=== PATIENT | female | born 1980 | race Caucasian/White ===

== ENCOUNTER 2016-09-19 23:45 | Inpatient (IN) | payer MEDICAID ==
[~2016-09-19] VITALS: Ht 146.1 cm; Wt 107.5 kg
[~2016-09-19 23:45] MED LIST: NITR-58; PRENATALS
[2016-09-20 00:26] VITALS: BP 160/85; PULSE 69; RESP 18
[2016-09-20 00:46] LABS: ADD UMIC YES; URINE BILIRUBIN (Dip) NEGATIVE (NEGATIVE); URINE BLOOD (Dip) 2+ (NEGATIVE); URINE COLOR LT. YELLOW (YELLOW); URINE GLUCOSE (Dip) NEGATIVE (NEGATIVE); URINE KETONES (Dip) NEGATIVE (NEGATIVE); URINE LEUKOCYTE ESTERASE (Dip) NEGATIVE (NEGATIVE); URINE NITRITE (Dip) NEGATIVE (NEGATIVE); URINE UROBILINOGEN (Dip) 0.2 E.U./dL (0.1-1.0)
[2016-09-20 00:49] LABS: URINE TOTAL PROTEIN (Dip) 4+ (NEGATIVE)
[2016-09-20 01:03] LABS: BASOPHILS % 0.2 % (0.0-2.0); EOSINOPHILS # 0.1 10^3/ul (0.0-0.5); EOSINOPHILS % 0.6 % (0.0-7.0); HEMATOCRIT 42.2 % (37.0-47.0); HEMOGLOBIN 14.3 g/dl (12.0-16.0); LYMPHOCYTES # 2.5 10^3/ul (0.8-2.9); LYMPHOCYTES % 13.7 % (15.0-51.0); MEAN CORPUSCULAR HEMOGLOBIN 30.7 pg (29.0-33.0); MEAN CORPUSCULAR HGB CONC 33.8 g/dl (32.0-37.0); MEAN CORPUSCULAR VOLUME 90.7 fl (82.0-101.0); MEAN PLATELET VOLUME 8.9 fl (7.4-10.4); MONOCYTE # 0.9 10^3/ul (0.3-0.9); MONOCYTES % 5.1 % (0.0-11.0); NEUTROPHIL # 14.8 10^3/ul (1.6-7.5); NEUTROPHILS % 80.4 % (39.0-77.0); PLATELET COUNT 169 10^3/UL (140-440); RED BLOOD COUNT 4.65 10^6/ul (4.20-5.40); RED CELL DISTRIBUTION WIDTH 14.6 % (11.5-14.5); UNCORRECTED WBC 18.4 10^3/ul (4.8-10.8); WHITE BLOOD COUNT 18.4 10^3/ul (4.8-10.8)
[2016-09-20 01:04] LABS: CONDITION 1; LH ANALYZER COMMENTS 1
[2016-09-20 01:10] LABS: SQUAMOUS EPITHELIAL CELL,UR MANY
[2016-09-20 01:11] LABS: BACTERIA,URINE MODERATE
[2016-09-20 01:14] LABS: ALBUMIN 3.1 g/dl (3.3-4.9)
[2016-09-20 01:15] LABS: POTASSIUM 3.9 mmol/L (3.5-5.1)
[2016-09-20 01:16] LABS: INR 0.92; PROTIME 12.4 Sec (12.2-14.2)
[2016-09-20 01:17] LABS: ALBUMIN/GLOBULIN RATIO 0.91; BILIRUBIN,INDIRECT 0.6 mg/dl (0-1.1); BILIRUBIN,TOTAL 0.6 mg/dl (0.2-1.3); CREATININE 0.63 mg/dl (0.44-1.00); PARTIAL THROMBOPLASTIN TIME 28.6 Sec (25.0-35.0); TOTAL PROTEIN 6.5 g/dl (6.1-8.1)
[2016-09-20 01:18] LABS: CALCIUM 8.7 mg/dl (8.4-10.2); URIC ACID 6.2 mg/dl (3.1-7.9)
--- NOTE | 2016-09-20 01:59 | TRIAGE ---
OB Triage Datetime Report Generated by CPN: 09/20/2016 01:59 Datetime: 09/20/2016 00:32 Time of Arrival: 09/19/2016 23:36 EGA: 31.4 Arrived By: Wheelchair Arrived From: Home Chief Complaint: w/ hx c/s x1 w/ c/o epigastric pain, RESENDIZ, ucs. Denies hx problems this pregna ncy Movement: Absent Contractions: Regular Time Contractions Began: 09/19/2016 19:00 Rupture of Membranes: Denies Vaginal Bleeding: None Vaginal Discharge: Denies Abdominal Trauma: Not Applicable Patient Complaints: Contractions; Back Pain; Headache; Epigastric Pain; Dizziness Time Provider Notified: 09/20/2016 00:23 Provider Notified: Dr De Anda Initial Plan: EFM, PIH LABS,EFW,BPP,CVL,FFN,ROM Datetime: 09/19/2016 23:58 Maternal Assessment Level of Consciousness: Fully Conscious DTR's/Clonus: DTRs 2+; No Clonus Headache: Temporal Blurred Vision: No Nausea/Vomiting: Denies RUQ Epigastric Pain: Present Facial Edema: None Labor Evaluation Frequency: placed Monitor Mode: External Resting Tone [place]: Relaxed Heart Rate FHR Baseline Rate: 140 Monitor Mode: External US Pain Assessment Pain Scale: 10 Pain Presence: Constant Pain Type: Cramping; Sharp Pain Location: Abdomen; Back
[2016-09-20] MEDS ORDERED: ONDANSETRON 4 MG INJ IV PRN (02:00)
[2016-09-20] MEDS ORDERED: ACETAMINOPHEN 325 MG TAB PO PRN (02:00)
[2016-09-20] MEDS ORDERED: MAGNESIUM SULFATE 4 GM/100 ML 100 ML IV ONE (02:00)
--- NOTE | 2016-09-20 02:01 | HP ---
Date/Time of Note Date/Time of Note DATE: 09/20/16 TIME: 01:43 OB - History Hx of Present Free Text/Dictation Pt is a morbidly obese 35yo at 29+1wks by 5wk U/S who presented to OB triage with c/o constant and now intermittent epigastric pain radiating to lower pelvic region since 6:30pm on 09/19/16. Pt also c/o headache, an episode of vomiting and dizziness and swelling in her face and legs. Denies N/V, visual changes or dizziness at this time although the headache has persisted. Pt feels she may have been having contractions as well although is unsure. Also unsure whether she has been leaking fluid. Denies vaginal bleeding and reports fetus has been moving normally. Pt has hx of C/S x1 s/p PROM with lack of cervical dilation. Denies hx of preeclampsia in prior . Reports normal BPs during this . Pt denies known hx of gallstones. Full records are not available. Initial visit at 5wks, pt had a documented BP of 116/57. Estimated Due Date: Dec 05, 2016 : 3 Para: 1 Care: Good Care Obstetrical Complications: None Medical Complications: Other (Morbid Obesity) Past Family/Social History * Past Medical, Surgical, Family and Obstetric Histories reviewed from chart. OB Admission Exam Vital Signs Vital Signs Vital Signs Date Time Temp Pulse Resp B/P Pulse Ox O2 Delivery O2 Flow Rate FiO2 09/20/16 00:26 98.1 69 18 160/85 Room Air Repeat BP 152/81, 149/79 Physical Exam HEENT: WNL Heart: Rhythm Normal Lungs: Clear Abdomen: WNL (obese, nontender, NABS) Extremities: Edema (1+ pitting bilaterally) Reflexes: Normal Cervical Dilatation: None Effacement: 0% Station: -3 Heart Rate: 130's Accelerations: Accelerations Present (10x10) Decelerations: Variable Decelerations (x1 to 90s) Varibility: Moderate Contractions on Admission: >10 Minutes Apart (x1) Intensity: Mild Last 72 hours Lab Results CBC & BMP 09/20/16 00:44 Liver Function Test 09/20/16 00:44 Alanine Aminotransferase (ALT/SGPT) 109 H Albumin 3.1 L Alkaline Phosphatase 147 H Aspartate Amino Transf (AST/SGOT) 173 H Direct Bilirubin 0.00 Total Protein 6.5 OB Assessment/Plan Other Assessment: R/o Preeclampsia Other plan: 35yo at 31+5 with hx of C/S x1 with new onset elevated BPs, RESENDIZ and epigastric pain admitted 2/2 c/f PreEclampsia 1)R/o PreE- PreE labs notable for transaminitis and proteinuria on Udip -Repeat labs at 0600 to assess for trends vs stability (6hrs from initial set of labs) -Start 24hr urine collection -BP monitoring -IV antihypertensives for persistent severe range BPs -Magnesium Sulfate IV for seizure ppx w/q6H mag levels -Strict I/Os -Tylenol 1000mg PO now to see if RESENDIZ improves -Perinatology consult 2)Epigastric Pain -Unclear if 2/2 PreE vs gallstones -RUQ U/S ordered 3)FWB -Reactive NST -CEFM -U/S for EFW, BPP, CL -Given high likelihood of premature delivery, will give BMZ -NICU consult 4)R/O ROM -ROM plus 5)Hx of C/S x1 -NPO w/KATALINAF ENZO MIRANDA MD Sep 20, 2016 01:53
--- NOTE | 2016-09-20 02:29 | RADRPT ---
PROCEDURE: Obstetrical ultrasound, limited. CLINICAL INDICATION: Pelvic pain. TECHNIQUE: Multiple sonographic images of the pelvis were obtained using transabdominal technique . Images were obtained with zavaleta scale and color Doppler. The images were reviewed on a PACS works tation. COMPARISON: No prior studies are available for comparison. FINDINGS: There is a single living intrauterine gestation with the fetus in a breech presentation. hear t tones of 136 beats per minute are identified. The placenta is anterior in location, grade 2. The re is no evidence of placenta previa or abruption. Measurements were made in order to determine age. The results are as follows: BPD =7.77 cm HC =27.91 cm AC =26.63 cm FL =5.58 cm. Estimated gestational age of approximately 30 weeks and 3 days. The estimated date of delivery is 11/26/2016. The EFW = 1552 +/- 233 grams. Estimated weight percentage equals 7.7%. IMPRESSION: Single viable intrauterine gestation of approximately 30 weeks and 3 days, with an ultrasound ROBERTA of 11/26/2016. .Mahendra Alva MD, MD Date Time Electronically viewed and signed by .Mahendra Alva MD, MD on 09/20/2016 02:29 .T/
--- NOTE | 2016-09-20 02:30 | RADRPT ---
PROCEDURE: Biophysical profile. CLINICAL INDICATION: Pelvic pain. TECHNIQUE: Multiple sonographic images of the pelvis were obtained with transabdominal technique. Endovaginal evaluation of the cervix was also performed. COMPARISON: No prior studies are available for comparison. FINDINGS: There is a single living intrauterine gestation with the fetus in a breech position. The placenta i s anterior in location, grade II. heart tones of 137 beats per minute are identified. There i s normal amniotic fluid volume with an SALIMA of 19.9 cm. The cervix is closed and 3.7 cm. breathing movements = 2 Gross body movements = 2 tone = 2 Qualitative AFV = 2 IMPRESSION: Biophysical profile 8 out of 8. .Mahendra Alva MD, Date Time Electronically viewed and signed by .Mahendra Alva MD, MD on 09/20/2016 02:30 .T/
--- NOTE | 2016-09-20 02:32 | RADRPT ---
PROCEDURE: Abdominal ultrasound, limited. CLINICAL INDICATION: Abdominal pain. TECHNIQUE: Multiple real-time images were acquired of the patient's right upper abdomen utilizing a high resolution transducer. COMPARISON: None FINDINGS: The liver demonstrates normal echogenicity and size measuring 15.3 cm. There is no focal mass or in trahepatic biliary ductal dilatation. The portal vein is patent. The gallbladder is not distended. Multiple echogenic gallstones with the largest in the gallbladder neck measuring 2.7 cm. There is no pericholecystic fluid. There is mild gallbladder wall thickening measuring 4.3 mm. The common bile duct measures 4.8 mm in maximal dimension. The pancreas is obscured by overlying bowel gas. N o free fluid is identified. The right kidney is normal size and echogenicity measuring 10.6 cm. There is no focal renal mass id entified. There is a 4.9 mm calculus within the mid right kidney. There is no obstructive uropathy . IMPRESSION: Cholelithiasis with mild gallbladder wall thickening. Right renal calculus. Pancreas obscured by overlying bowel gas. .Mahendra Alva MD, MD Date Time Electronically viewed and signed by .Mahendra Alva MD, MD on 09/20/2016 02:32 .T/
[2016-09-20] MEDS: LACTATED RINGER'S 1,000 ML IV SCH ×2 (02:55→12:49)
[2016-09-20] MEDS: ACETAMINOPHEN 500 MG TAB PO PRN ×2 (03:02→15:55)
[2016-09-20] MEDS: BETAMET NA PHOS/AC(6 MG/ML) 5ML INJ IM SCH (04:04)
[2016-09-20] MEDS: MAGNESIUM SULFATE 20 GM/500 ML 500 ML IV SCH ×2 (04:05→14:44)
--- NOTE | 2016-09-20 06:43 | QN ---
Documentation Comment RESENDIZ resolved s/p Tylenol. Pt sleeping comfortably through the night. BPs reviewed and mostly 130s/70s with a few mild range BPs SBPs 150s, no further severe range BPs. Pt remains asymptomatic. Await results of AM labs. ENZO MIRANDA MD Sep 20, 2016 06:43
[2016-09-20 07:39] LABS: BASOPHIL # 0.1 10^3/ul (0.0-0.1); BASOPHILS % 0.4 % (0.0-2.0); EOSINOPHILS % 0.2 % (0.0-7.0); HEMATOCRIT 41.2 % (37.0-47.0); HEMOGLOBIN 14.1 g/dl (12.0-16.0); LYMPHOCYTES # 3.2 10^3/ul (0.8-2.9); LYMPHOCYTES % 16.7 % (15.0-51.0); MEAN CORPUSCULAR HEMOGLOBIN 31.1 pg (29.0-33.0); MEAN CORPUSCULAR HGB CONC 34.2 g/dl (32.0-37.0); MEAN CORPUSCULAR VOLUME 90.9 fl (82.0-101.0); MEAN PLATELET VOLUME 9.2 fl (7.4-10.4); MONOCYTE # 0.5 10^3/ul (0.3-0.9); MONOCYTES % 2.6 % (0.0-11.0); NEUTROPHIL # 15.1 10^3/ul (1.6-7.5); NEUTROPHILS % 80.1 % (39.0-77.0); PLATELET COUNT 166 10^3/UL (140-440); RED BLOOD COUNT 4.54 10^6/ul (4.20-5.40); RED CELL DISTRIBUTION WIDTH 15.2 % (11.5-14.5); UNCORRECTED WBC 18.8 10^3/ul (4.8-10.8); WHITE BLOOD COUNT 18.8 10^3/ul (4.8-10.8)
[2016-09-20 07:41] LABS: INR 0.93; PROTIME 12.5 Sec (12.2-14.2)
[2016-09-20 07:42] LABS: PARTIAL THROMBOPLASTIN TIME 30.8 Sec (25.0-35.0)
[2016-09-20 07:45] LABS: ALBUMIN 2.8 g/dl (3.3-4.9)
[2016-09-20 07:46] LABS: CONDITION 1; LH ANALYZER COMMENTS 1; POTASSIUM 4.2 mmol/L (3.5-5.1)
[2016-09-20 07:48] LABS: ALBUMIN/GLOBULIN RATIO 0.96; BILIRUBIN,INDIRECT 0.4 mg/dl (0-1.1); BILIRUBIN,TOTAL 0.4 mg/dl (0.2-1.3); CREATININE 0.65 mg/dl (0.44-1.00); TOTAL PROTEIN 5.7 g/dl (6.1-8.1)
[2016-09-20 07:49] LABS: CALCIUM 8.4 mg/dl (8.4-10.2); URIC ACID 5.9 mg/dl (3.1-7.9)
[2016-09-20] MEDS: MULTIVIT/MIN/FOLATE/IRON/PREN TAB PO SCH (09:59)
--- NOTE | 2016-09-20 10:41 | QN ---
Documentation Comment Spoke with Perinatologist, Dr. Correa, this AM regarding pt and current plan of care. MFM in agreement with management. Recommends PO antihypertensive. Labetolol 100mg BID ordered. ENZO MIRANDA MD Sep 20, 2016 10:41
[2016-09-20] MEDS: LABETALOL 100 MG TAB PO SCH ×2 (11:05→21:25)
[2016-09-21] MEDS: MAGNESIUM SULFATE 20 GM/500 ML 500 ML IV SCH ×2 (00:35→00:50)
[2016-09-21] MEDS: LACTATED RINGER'S 1,000 ML IV SCH ×2 (00:35→10:45)
[2016-09-21] MEDS: BETAMET NA PHOS/AC(6 MG/ML) 5ML INJ IM SCH (04:03)
[2016-09-21] MEDS: MULTIVIT/MIN/FOLATE/IRON/PREN TAB PO SCH (08:41)
[2016-09-21] MEDS: LABETALOL 100 MG TAB PO SCH ×2 (08:42→21:10)
--- NOTE | 2016-09-21 17:31 | QN ---
Documentation Comment doing well vss abd soft tacing catg. 1 d/c mg sulfate OPAL SAUCEDA MD Sep 21, 2016 17:31
--- NOTE | 2016-09-22 00:01 | CONS ---
DATE OF ADMISSION: 09/20/2016 DATE OF CONSULTATION: 09/21/2016 HISTORY OF PRESENT ILLNESS: The patient is a 35-year-old currently at 29 weeks who presented Saturd ay night with elevated blood pressure. She denies history of hypertension. Her history i s significant for 1 miscarriage followed by a full-term complicated by insulin-required di abetes towards the end of the . She does have some mild headache since Wednesday, but otherwise she denies any nausea, vomiting, righ t upper quadrant pain or shortness of breath. It is important to mention that she had a flu last we ek and she still feels congestion of the sinuses. Her blood pressures have been oscillating between completely normal to a few severe-range blood pres sures over her hospital stay. A 24-hour urine protein shows over 4000 grams of protein. AST, ALT w ere elevated. However, they are coming down subsequently. The last was yesterday and is significan tly lower than the time of admission. Creatinine is normal, platelets 160,000. heart tone is overall appropriate for the gestational age, and the patient has been on magnesi um sulfate, which affects variability of the heart tone. PHYSICAL EXAMINATION: Vital signs per above. Physical exam deferred. LABORATORY: Per above. REVIEW OF SYSTEMS: All systems negative except for what is mentioned above. IMPRESSION: Intrauterine at 29 weeks with severe preeclampsia, on magnesium sulfate curre ntly with liver function decreasing, some residual headaches which could be secondary to improving c old from last week. However, it also could be secondary to the disease. But overall, patient's status is reassuring, and I do not believe that the headache at this point is a significant factor in terms of the preeclampsia. However, further monitoring is necessary. RECOMMENDATIONS: In-house management until delivery. Continuous heart tone monitoring is rec ommended. Please discontinue magnesium sulfate. Consider repeating labs if there are any persisten t severe-range blood pressures. Delivery is recommended if she has any severe headache, nausea, vom iting or nonreassuring heart tones or thrombocytopenia less than 100,000. Otherwise, delivery at 34 weeks is recommended, and again, patient was recommended to stay until delivery, and she acce pts. Estimated weight please if it has not been done and NICU consult. She has received beta methasone. After 2 weeks, betamethasone can be given as a second series. However, please note that second series of betamethasone would be the last doses of betamethasone, so if the patient is stabl e, I do recommend to hold off on administration of betamethasone until necessary. Dictated By: DIANA LAZAR/KARI Conf#: [id number] DID#: [id number]
[2016-09-22] MEDS: LACTATED RINGER'S 1,000 ML IV SCH ×2 (00:25→13:06)
[2016-09-22] MEDS: MULTIVIT/MIN/FOLATE/IRON/PREN TAB PO SCH (09:20)
[2016-09-22] MEDS: LABETALOL 100 MG TAB PO SCH ×2 (09:23→21:19)
--- NOTE | 2016-09-22 12:31 | CONS ---
DATE OF ADMISSION: 09/20/2016 DATE OF CONSULTATION: 09/22/2016 REASON FOR CONSULTATION: Consultation is requested by the primary fruit picker, Dr. Trevon Jaramillo for maternal preeclampsia and prematurity at 29 and 2/7 weeks. HISTORY OF PRESENT ILLNESS: Mother is a woman, speaks only Tajik. She is a 35-year-old 3, para 1, 1, and her EDC is 12/05/2016. Mom was admitted to antepartum on 016 and she is 29 and 2/7 weeks and has preeclampsia with elevated blood pressure and proteinuria. She has been treated with magnesium sulfate and remains on labetalol now and received 1 course of be tamethasone, with the last dose given on 09/21/2016 at 04:04. Estimated weight is 1552 grams and SALIMA is 19.4. Presentation is breech on the last ultrasound done. Mom also has gestational diab etes. I explained to the mother with the help of an gluer and slicer hand about 29 to 30-week premature babies, risk s, general treatment plan, general procedures done in NICU and survival of greater than 80%, and sig nificant risk for sepsis, RDS, chronic lung disease, endocrinopathy of prematurity, intraventricular hemorrhage, and long-term hearing, vision, and neurodevelopmental problems including, but not limit ed to, delayed milestones, school problems, low intelligence, and cerebral palsy. I explained to th e mother about respiratory distress syndrome, intubation and ventilatory assistance, oxygen dependen cy and chronic lung disease, risk for sepsis and intercurrent infections requiring antibiotic therap y, need for blood transfusions in view of prematurity and low weight, attendant risks with blo od transfusions, feeding problems with necrotizing enterocolitis and gastroesophageal reflux, import ance of breast milk in baby's nutritional status, jaundice, phototherapy, anemia, intraventricular h emorrhage and general treatment plan, and answered her questions and addressed her concerns. Mom se ems to understand the baby's risks of prematurity and has had appropriate questions that were addres sed. I thank you very much for allowing me to take part in the care of this patient. We will attend the delivery and follow the baby as needed. Mother is a woman, speaks only Tajik. She is a 35-year-old 3, para 1, 1 , and her EDC is 12/05/2016. Dictated By: SUANA JASMINE/KARI Conf#: [id number] DID#: [id number]
--- NOTE | 2016-09-22 15:13 | QN ---
Documentation Comment doing well vss tracing catg. 1 cpm keep in hospital till delivery OPAL SAUCEDA MD Sep 22, 2016 15:13
[2016-09-23] MEDS: LACTATED RINGER'S 1,000 ML IV SCH ×2 (01:52→14:01)
[2016-09-23] MEDS: MULTIVIT/MIN/FOLATE/IRON/PREN TAB PO SCH (08:59)
[2016-09-23] MEDS: LABETALOL 100 MG TAB PO SCH ×2 (09:03→21:15)
--- NOTE | 2016-09-23 18:51 | QN ---
Documentation Comment DOING WELL VSS TRACING CATG 1 CPM OPAL SAUCEDA MD Sep 23, 2016 18:51
[2016-09-24] MEDS: LACTATED RINGER'S 1,000 ML IV SCH ×2 (03:50→15:00)
[2016-09-24] MEDS: LABETALOL 100 MG TAB PO SCH ×2 (09:11→21:14)
[2016-09-24] MEDS: MULTIVIT/MIN/FOLATE/IRON/PREN TAB PO SCH (09:12)
--- NOTE | 2016-09-24 16:41 | QN ---
Documentation Comment doing well vss abd soft tracing catg. 1 cpm OPAL SAUCEDA MD Sep 24, 2016 16:41
[2016-09-25] MEDS: LACTATED RINGER'S 1,000 ML IV SCH ×2 (06:01→11:46)
--- NOTE | 2016-09-25 08:53 | QN ---
Documentation Comment doing well vss bp 140/80 tracing catg .1 cpm d/c IV OPAL SAUCEDA MD Sep 25, 2016 08:53
[2016-09-25] MEDS: MULTIVIT/MIN/FOLATE/IRON/PREN TAB PO SCH (08:55)
[2016-09-25] MEDS: LABETALOL 100 MG TAB PO SCH ×2 (08:55→21:32)
[2016-09-26] MEDS: LACTATED RINGER'S 1,000 ML IV SCH ×3 (00:51→23:47)
[2016-09-26] MEDS: LABETALOL 100 MG TAB PO SCH ×2 (08:54→21:06)
[2016-09-26] MEDS: MULTIVIT/MIN/FOLATE/IRON/PREN TAB PO SCH (08:55)
--- NOTE | 2016-09-26 09:54 | QN ---
Documentation Comment HD#7 for 35yo at 30wks GA with hx of C/S x1 admitted for preeclampsia with severe features Pt doing well this AM. Denies RESENDIZ, visual changes, RUQ/epigastric pain, contractions, vaginal bleeding or LOF. Reports active fetus. VS BP 131/85 (119-131/76-87, outlier BPs 143/86 @0127, 153/100 @0200), P 71 NST: baseline 130s, mod dima, +accels, no decel [place]: acontractile Gen: well appearing, NAD Abd: soft, NT, gravid Ext: nontender, symmetric, trace edema bilaterally Pt currently asymptomatic from PreE standpoint w/reassuring status ->Continue BP monitoring ->Continue Labetolol 100mg BID ->s/p BMZ and NICU consult ->FWB reassuring w/reactive NST. Will change to CEFM per Dr. Winslow's recommendation ->Pt to remain in house until delivery at 34wks, sooner if labs worsen, BPs worsen or pt deteriorates Plan d/w pt. Questions answered to pt satisfaction. ENZO MIRANDA MD Sep 26, 2016 09:54
[2016-09-27] MEDS: MULTIVIT/MIN/FOLATE/IRON/PREN TAB PO SCH (08:52)
[2016-09-27] MEDS: LABETALOL 100 MG TAB PO SCH ×2 (08:53→21:02)
[2016-09-27] MEDS: LACTATED RINGER'S 1,000 ML IV SCH (12:56)
[2016-09-27 13:34] LABS: BASOPHIL # 0.1 10^3/ul (0.0-0.1); BASOPHILS % 0.4 % (0.0-2.0); EOSINOPHILS # 0.1 10^3/ul (0.0-0.5); EOSINOPHILS % 0.7 % (0.0-7.0); HEMATOCRIT 42.1 % (37.0-47.0); HEMOGLOBIN 14.2 g/dl (12.0-16.0); LYMPHOCYTES # 3.5 10^3/ul (0.8-2.9); LYMPHOCYTES % 22.9 % (15.0-51.0); MEAN CORPUSCULAR HEMOGLOBIN 30.9 pg (29.0-33.0); MEAN CORPUSCULAR HGB CONC 33.7 g/dl (32.0-37.0); MEAN CORPUSCULAR VOLUME 91.6 fl (82.0-101.0); MEAN PLATELET VOLUME 9.1 fl (7.4-10.4); MONOCYTE # 0.8 10^3/ul (0.3-0.9); MONOCYTES % 4.9 % (0.0-11.0); NEUTROPHILS % 71.1 % (39.0-77.0); PLATELET COUNT 191 10^3/UL (140-440); RED CELL DISTRIBUTION WIDTH 14.9 % (11.5-14.5); UNCORRECTED WBC 15.5 10^3/ul (4.8-10.8); WHITE BLOOD COUNT 15.5 10^3/ul (4.8-10.8)
[2016-09-27 13:38] LABS: CONDITION 1; LH ANALYZER COMMENTS 1
[2016-09-27 13:45] LABS: ALBUMIN 3.1 g/dl (3.3-4.9)
[2016-09-27 13:46] LABS: POTASSIUM 4.1 mmol/L (3.5-5.1)
[2016-09-27 13:48] LABS: BILIRUBIN,INDIRECT 0.2 mg/dl (0-1.1); BILIRUBIN,TOTAL 0.2 mg/dl (0.2-1.3); CREATININE 0.67 mg/dl (0.44-1.00)
[2016-09-27 13:49] LABS: ALBUMIN/GLOBULIN RATIO 0.88; CALCIUM 9.5 mg/dl (8.4-10.2); TOTAL PROTEIN 6.6 g/dl (6.1-8.1)
[2016-09-28] MEDS: LACTATED RINGER'S 1,000 ML IV SCH (01:06)
[2016-09-28] MEDS: LABETALOL 100 MG TAB PO SCH ×2 (08:40→21:01)
[2016-09-28] MEDS: MULTIVIT/MIN/FOLATE/IRON/PREN TAB PO SCH (08:40)
--- NOTE | 2016-09-28 08:48 | QN ---
Documentation Comment doing well vss tracing category 1 cpm OPAL SAUCEDA MD Sep 28, 2016 08:48
[2016-09-29] MEDS: LABETALOL 100 MG TAB PO SCH ×2 (08:40→20:35)
[2016-09-29] MEDS: MULTIVIT/MIN/FOLATE/IRON/PREN TAB PO SCH (08:41)
--- NOTE | 2016-09-29 11:12 | QN ---
Documentation Comment doing well vss abd soft tracing category 1 cpm OPAL SAUCEDA MD Sep 29, 2016 11:12
[2016-09-30] MEDS: LABETALOL 100 MG TAB PO SCH ×2 (09:08→21:05)
[2016-09-30] MEDS: MULTIVIT/MIN/FOLATE/IRON/PREN TAB PO SCH (09:08)
--- NOTE | 2016-09-30 17:31 | PN ---
Date/Time of Note Date/Time of Note DATE: 09/30/16 TIME: 17:25 OB Subjective Subjective Subjective Comfortable in bed. Denies any headache, blurred vision or epigastric pain. Denies any vaginal bleeding, LOF or contractions OB Objective Objective Objective GA: A&O, NAD, Obese, comfortable in bed. Abdomen: soft, Gravid, non tender. Fundal height appropriate for GA Extremities: No calf tenderness, no click, no edema NST: Cat 1 no contractions seen on the monitor OB Assessment/Plan Other Assessment: HD#: 10 Admitted for elevated blood pressure, proteinuria and transamnitis consistent with preclampsia Currently stable on antiHypertensive meds, on Labetalol 100 mg PO BID blood pressure variable. Asymptomatic Transamitis, stable IUP at 30 weeks and 4 days S/p BMTz x2 Symptoms consistent with PIH. Currently stable and non worsening Recommended by perinatologist to deliver at 34 weeks and inpatient management unless worseing of BP , symptoms or lab abnormality, Stable Continue same management DASH GOODMAN MD Sep 30, 2016 17:31
[2016-10-01] MEDS: MULTIVIT/MIN/FOLATE/IRON/PREN TAB PO SCH (09:23)
[2016-10-01] MEDS: LABETALOL 100 MG TAB PO SCH ×2 (09:24→21:23)
--- NOTE | 2016-10-01 12:40 | QN ---
Documentation Comment doing well vss tracing category 1 cpm OPAL SAUCEDA MD Oct 01, 2016 12:40
[2016-10-02] MEDS: MULTIVIT/MIN/FOLATE/IRON/PREN TAB PO SCH (08:50)
[2016-10-02] MEDS: LABETALOL 100 MG TAB PO SCH ×2 (08:51→21:28)
[2016-10-03] MEDS: LABETALOL 100 MG TAB PO SCH ×2 (09:32→21:15)
[2016-10-03] MEDS: MULTIVIT/MIN/FOLATE/IRON/PREN TAB PO SCH (09:32)
--- NOTE | 2016-10-03 13:09 | PERINOTE ---
Date/Time of Note Date/Time of Note DATE: 10/03/16 TIME: 12:54 Assessment/Recommendations Other Assessments IUP 31 weeks Elevated BP with a very few severe-range BPs. BP is responding well to bedrest and labetalol Obesity Diabetes with prior , not tested in this Recommendations: I consider the diagnosis of severe preeclampsia to be poorly established, as the occasional elevated BPs are taken under uncertain circumstances by an automatic cuff. The elevated liver enzymes are most probably due to gallstones and the proteinuria is no longer used as a criterion for severe (and the old cutoff would have been 5000mg). I would therefore repeat the [facility] labs to confirm normal levels. If the patient remains stable, could consider D/C on Wednesday with arrangements made for twice weekly testing. I would perform a fasting blood glucose in the AM. Glucose challenge testing is of limited accuracy in a hospitalized patient on bedrest. OB Subjective Free Text/Dictaton Patient is a 35 year old at 31 weeks GA admitted for suspicion of preeclampsia. Other history: the patient had insulin-requiring diabetes in her prior . US on this admission revealed kidney and gallbladder stones as well as a normally-grown fetus. LFTs were originally abnormal and have reverted to normal, suggesting that the cause is the gallstones not severe preeclampsia. HD# 14 IUP @ 31 weeks Complaints/Overnight events No complaints Current Medications Current Medications Prenat Multivit/ [place]/Iron/Folic Ac ( S) 1 tab DAILY PO Last administered on 10/03/16at 09:32; Admin Dose 1 TAB; Start 09/20/16 at 09:00 Ondansetron HCl (Zofran Inj) 4 mg Q6H PRN IV NAUSEA AND/OR VOMITING; Start 09/20/16 at 02:00 Acetaminophen (Tylenol Tab) 1,000 mg Q6H PRN PO PAIN AND OR ELEVATED TEMP Last administered on 09/20/16at 15:55; Admin Dose 1,000 MG; Start 09/20/16 at 03:00 Labetalol HCl (Normodyne) 100 mg BID PO Last administered on 10/03/16at 09:32; Admin Dose 100 MG; Start 09/20/16 at 11:00 OB Admission Exam Physical Exam Vitals: BP: 108/70 P: 77 RR:21 T: 98.1 Abdomen: WNL Heart Rate: 130's Accelerations: Accelerations Present (Poor quality record due to maternal obesity) Varibility: Moderate Contractions on Admission: None Copies To: CC: OPAL SAUCEDA MD, MARIE H MD Oct 03, 2016 13:08
[2016-10-03 16:17] LABS: ADD UMIC YES; URINE BILIRUBIN (Dip) NEGATIVE (NEGATIVE); URINE BLOOD (Dip) TRACE (NEGATIVE); URINE COLOR LT. YELLOW (YELLOW); URINE GLUCOSE (Dip) NEGATIVE (NEGATIVE); URINE KETONES (Dip) NEGATIVE (NEGATIVE); URINE LEUKOCYTE ESTERASE (Dip) NEGATIVE (NEGATIVE); URINE NITRITE (Dip) NEGATIVE (NEGATIVE); URINE TOTAL PROTEIN (Dip) 1+ (NEGATIVE); URINE UROBILINOGEN (Dip) 0.2 E.U./dL (0.1-1.0)
[2016-10-03 16:29] LABS: BACTERIA,URINE FEW; SQUAMOUS EPITHELIAL CELL,UR MODERATE; URINE RBCS 0-2 /HPF (0)
[2016-10-04 06:40] LABS: BASOPHIL # 0.1 10^3/ul (0.0-0.1); BASOPHILS % 0.6 % (0.0-2.0); EOSINOPHILS # 0.2 10^3/ul (0.0-0.5); EOSINOPHILS % 1.5 % (0.0-7.0); HEMATOCRIT 42.9 % (37.0-47.0); HEMOGLOBIN 14.7 g/dl (12.0-16.0); LYMPHOCYTES # 3.8 10^3/ul (0.8-2.9); LYMPHOCYTES % 28.6 % (15.0-51.0); MEAN CORPUSCULAR HEMOGLOBIN 31.5 pg (29.0-33.0); MEAN CORPUSCULAR HGB CONC 34.3 g/dl (32.0-37.0); MEAN CORPUSCULAR VOLUME 91.7 fl (82.0-101.0); MEAN PLATELET VOLUME 8.9 fl (7.4-10.4); MONOCYTE # 0.8 10^3/ul (0.3-0.9); MONOCYTES % 5.8 % (0.0-11.0); NEUTROPHIL # 8.5 10^3/ul (1.6-7.5); NEUTROPHILS % 63.5 % (39.0-77.0); PLATELET COUNT 235 10^3/UL (140-440); RED BLOOD COUNT 4.67 10^6/ul (4.20-5.40); RED CELL DISTRIBUTION WIDTH 15.1 % (11.5-14.5); UNCORRECTED WBC 13.4 10^3/ul (4.8-10.8); WHITE BLOOD COUNT 13.4 10^3/ul (4.8-10.8)
[2016-10-04 06:46] LABS: POTASSIUM 4.4 mmol/L (3.5-5.1)
[2016-10-04 06:48] LABS: CREATININE 0.75 mg/dl (0.44-1.00)
[2016-10-04 06:49] LABS: CALCIUM 9.1 mg/dl (8.4-10.2); PHOSPHORUS 4.6 mg/dl (2.5-4.9)
[2016-10-04 06:52] LABS: CONDITION 1; LH ANALYZER COMMENTS 1
[2016-10-04] MEDS: LABETALOL 100 MG TAB PO SCH ×2 (08:44→20:57)
[2016-10-04] MEDS: MULTIVIT/MIN/FOLATE/IRON/PREN TAB PO SCH (08:45)
[2016-10-04 10:31] LABS: BILIRUBIN,INDIRECT 0.1 mg/dl (0-1.1); BILIRUBIN,TOTAL 0.1 mg/dl (0.2-1.3); TOTAL PROTEIN 6.6 g/dl (6.1-8.1)
[2016-10-04 16:11] LABS: ADD UMIC YES; URINE BILIRUBIN (Dip) NEGATIVE (NEGATIVE); URINE BLOOD (Dip) TRACE (NEGATIVE); URINE COLOR LT. YELLOW (YELLOW); URINE GLUCOSE (Dip) NEGATIVE (NEGATIVE); URINE KETONES (Dip) NEGATIVE (NEGATIVE); URINE LEUKOCYTE ESTERASE (Dip) NEGATIVE (NEGATIVE); URINE NITRITE (Dip) NEGATIVE (NEGATIVE); URINE TOTAL PROTEIN (Dip) 1+ (NEGATIVE); URINE UROBILINOGEN (Dip) 0.2 E.U./dL (0.1-1.0)
[2016-10-04 16:26] LABS: BACTERIA,URINE MODERATE; SQUAMOUS EPITHELIAL CELL,UR FEW; URINE RBCS 0-2 /HPF (0)
[2016-10-05] MEDS: MULTIVIT/MIN/FOLATE/IRON/PREN TAB PO SCH (08:57)
[2016-10-05] MEDS: LABETALOL 100 MG TAB PO SCH ×2 (08:59→21:26)
[2016-10-06] MEDS: MULTIVIT/MIN/FOLATE/IRON/PREN TAB PO SCH (09:14)
[2016-10-06] MEDS: LABETALOL 100 MG TAB PO SCH (09:15)
[2016-10-06 19:09] LABS: SCRET 0.75 mg/dl (0.44-1.00)
[2016-10-07] MEDS: MULTIVIT/MIN/FOLATE/IRON/PREN TAB PO SCH (09:08)
[2016-10-07] MEDS: LABETALOL 100 MG TAB PO SCH (09:12)
[2016-10-08] MEDS: LABETALOL 100 MG TAB PO SCH (08:47)
[2016-10-08] MEDS: MULTIVIT/MIN/FOLATE/IRON/PREN TAB PO SCH (08:47)
--- NOTE | 2016-10-08 20:00 | PN ---
Date/Time of Note Date/Time of Note DATE: 10/08/16 TIME: 19:44 OB Subjective Subjective Subjective Patient feeling well; denies headache, blurry vision, epigastric pain. Denies contractions, vaginal bleeding, leakage of fluid, or She desires to go home. OB Objective Objective Objective Nml VS 24 hr urine result today was 1gm (previously 4gm). BP's have been ranging from 90's-100/50-60, pulse 80's Abdomen- gravid, n/t Abdomen: WNL OB Assessment/Plan Other Assessment: 35 yo @ 31 wks, on labetolol for elevated BP's, BP's now normalized - 24 urine protein level has decreased from 4gm to 1gm - patient w nml BP's on labetolol once a day Other plan: will send repeat PIH labs in morning patient never had diabetes screen and was insulin dependent diabetic in last ; 3hr GTT ordered for am if stable labs and BP's, consider d/c home, according to perinatologist recommendation from 10/03/16 ERNA LAYNE MD Oct 08, 2016 19:56
[2016-10-09 06:03] LABS: ALBUMIN 2.8 g/dl (3.3-4.9)
[2016-10-09 06:04] LABS: POTASSIUM 4.1 mmol/L (3.5-5.1)
[2016-10-09 06:06] LABS: BILIRUBIN,INDIRECT 0.1 mg/dl (0-1.1); BILIRUBIN,TOTAL 0.1 mg/dl (0.2-1.3); CREATININE 0.67 mg/dl (0.44-1.00); TOTAL PROTEIN 6.3 g/dl (6.1-8.1)
[2016-10-09 06:07] LABS: CALCIUM 8.9 mg/dl (8.4-10.2); URIC ACID 7.2 mg/dl (3.1-7.9)
[2016-10-09 06:19] LABS: BASOPHIL # 0.1 10^3/ul (0.0-0.1); BASOPHILS % 0.4 % (0.0-2.0); EOSINOPHILS # 0.2 10^3/ul (0.0-0.5); EOSINOPHILS % 1.3 % (0.0-7.0); HEMATOCRIT 41.4 % (37.0-47.0); HEMOGLOBIN 14.2 g/dl (12.0-16.0); LYMPHOCYTES # 4.5 10^3/ul (0.8-2.9); LYMPHOCYTES % 34.6 % (15.0-51.0); MEAN CORPUSCULAR HEMOGLOBIN 31.5 pg (29.0-33.0); MEAN CORPUSCULAR HGB CONC 34.2 g/dl (32.0-37.0); MEAN CORPUSCULAR VOLUME 92.1 fl (82.0-101.0); MEAN PLATELET VOLUME 8.9 fl (7.4-10.4); MONOCYTE # 0.6 10^3/ul (0.3-0.9); MONOCYTES % 4.9 % (0.0-11.0); NEUTROPHIL # 7.7 10^3/ul (1.6-7.5); NEUTROPHILS % 58.8 % (39.0-77.0); PLATELET COUNT 209 10^3/UL (140-440); RED CELL DISTRIBUTION WIDTH 15.3 % (11.5-14.5); UNCORRECTED WBC 13.1 10^3/ul (4.8-10.8); WHITE BLOOD COUNT 13.1 10^3/ul (4.8-10.8)
[2016-10-09 06:45] LABS: ALBUMIN/GLOBULIN RATIO 0.8
[2016-10-09 07:01] LABS: CONDITION 1; LH ANALYZER COMMENTS 1
[2016-10-09] MEDS: MULTIVIT/MIN/FOLATE/IRON/PREN TAB PO SCH (08:42)
[2016-10-09] MEDS: LABETALOL 100 MG TAB PO SCH (08:42)
[2016-10-09 11:22] LABS: ADD UMIC YES; URINE BILIRUBIN (Dip) NEGATIVE (NEGATIVE); URINE BLOOD (Dip) 1+ (NEGATIVE); URINE COLOR LT. YELLOW (YELLOW); URINE GLUCOSE (Dip) NEGATIVE (NEGATIVE); URINE KETONES (Dip) NEGATIVE (NEGATIVE); URINE LEUKOCYTE ESTERASE (Dip) TRACE (NEGATIVE); URINE NITRITE (Dip) NEGATIVE (NEGATIVE); URINE TOTAL PROTEIN (Dip) 1+ (NEGATIVE); URINE UROBILINOGEN (Dip) 0.2 E.U./dL (0.1-1.0)
[2016-10-09 12:01] LABS: BACTERIA,URINE FEW; URINE RBCS 0-2 /HPF (0)
[2016-10-10] MEDS: LABETALOL 100 MG TAB PO SCH (09:21)
[2016-10-10] MEDS: MULTIVIT/MIN/FOLATE/IRON/PREN TAB PO SCH (09:22)
[2016-10-11] MEDS: MULTIVIT/MIN/FOLATE/IRON/PREN TAB PO SCH (08:49)
[2016-10-11] MEDS: LABETALOL 100 MG TAB PO SCH (08:49)
[2016-10-11 22:16] LABS: ADD UMIC YES; URINE BILIRUBIN (Dip) NEGATIVE (NEGATIVE); URINE BLOOD (Dip) TRACE (NEGATIVE); URINE COLOR LT. YELLOW (YELLOW); URINE GLUCOSE (Dip) NEGATIVE (NEGATIVE); URINE KETONES (Dip) NEGATIVE (NEGATIVE); URINE LEUKOCYTE ESTERASE (Dip) NEGATIVE (NEGATIVE); URINE NITRITE (Dip) NEGATIVE (NEGATIVE); URINE UROBILINOGEN (Dip) 0.2 E.U./dL (0.1-1.0)
[2016-10-11 22:27] LABS: BACTERIA,URINE FEW; SQUAMOUS EPITHELIAL CELL,UR MODERATE; URINE RBCS 0-2 /HPF (0); URINE TOTAL PROTEIN (Dip) 1+ (NEGATIVE)
--- NOTE | 2016-10-11 23:30 | PN ---
Date/Time of Note Date/Time of Note DATE: 10/11/16 TIME: 23:18 OB Subjective Subjective Subjective Denies any headache, blurred vision or epigastric pain. Denies any LOF, vaginal bleeding or contractions. Reports good movement OB Objective Objective Objective GA: A&O, NAD, obese abdomen: Soft, gravid. non tender Extremities: + 2 edema of both lower extremities. no calf tenderness, no click, no Jose sign NST: cat Hematology - 72 Hrs Test 10/09/16 05:15 Basophils # 0.110^3/ul (0.0-0.1) Basophils % 0.4% (0.0-2.0) Blood Morphology Comment Eosinophils # 0.210^3/ul (0.0-0.5) Eosinophils % 1.3% (0.0-7.0) Hematocrit 41.4% (37.0-47.0) Hemoglobin 14.2g/dl (12.0-16.0) Lymphocytes # 4.510^3/ul (0.8-2.9) H Lymphocytes % 34.6% (15.0-51.0) Mean Corpuscular Hemoglobin 31.5pg (29.0-33.0) Mean Corpuscular Hemoglobin Concent 34.2g/dl (32.0-37.0) Mean Corpuscular Volume 92.1fl (82.0-101.0) Mean Platelet Volume 8.9fl (7.4-10.4) Monocytes # 0.610^3/ul (0.3-0.9) Monocytes % 4.9% (0.0-11.0) Neutrophils # 7.710^3/ul (1.6-7.5) H Neutrophils % 58.8% (39.0-77.0) Nucleated Red Blood Cells # 0.010^3/ul (0.0-0.0) Nucleated Red Blood Cells % 0.0/100WBC (0.0-0.0) Platelet Count 16082^3/UL (140-440) Red Blood Count 4.5010^6/ul (4.20-5.40) Red Cell Distribution Width 15.3% (11.5-14.5) H White Blood Count 13.110^3/ul (4.8-10.8) H Chemistry Test 10/09/16 05:15 Alanine Aminotransferase (ALT/SGPT) 32IU/L (13-69) Albumin 2.8g/dl (3.3-4.9) L Albumin/Globulin Ratio 0.80 Alkaline Phosphatase 226IU/L (42-121) H Anion Gap 15 (8-16) Aspartate Amino Transf (AST/SGOT) 25IU/L (15-46) Blood Urea Nitrogen 13mg/dl (7-20) Calcium Level 8.9mg/dl (8.4-10.2) Carbon Dioxide Level 19mmol/L (21-31) L Chloride Level 106mmol/L (97-110) Creatinine 0.67mg/dl (0.44-1.00) Direct Bilirubin 0.00mg/dl (0.00-0.20) Serum Fasting Glucose Urine Urine Fasting Glucose Globulin 3.50g/dl (1.3-3.2) H Glucose Level 81mg/dl (70-220) Indirect Bilirubin 0.1mg/dl (0-1.1) Potassium Level 4.1mmol/L (3.5-5.1) Sodium Level 136mmol/L (135-144) Total Bilirubin 0.1mg/dl (0.2-1.3) L Total Protein 6.3g/dl (6.1-8.1) Uric Acid 7.2mg/dl (3.1-7.9) OB Assessment/Plan Other Assessment: HD #21 Admitted due to elevated blood pressure, elevated liver enzymes consistent with PIH, S/p 2 doses of steriod 24 hour urine collection shows 4 gram protein blood pressure significantly improved and now in normal range with only 100 mg labetalol daily PO. Initial elevated BP could be related to inappropriate cuff size Transaminitis resolved. Currently asymptomatic. can not r/o increased due to gall stone? or other etiologies Patient doing well Per recommendation of Dr. Phillips, can be discharged home with NST Biweekly and close monitoring and bed rest at home To be seen tomorrow by Dr. Lester primary OB, if agrees for discharge with close follow up and monitoring. DASH GOODMAN MD Oct 11, 2016 23:29
[2016-10-12] MEDS: LABETALOL 100 MG TAB PO SCH (09:20)
[2016-10-12] MEDS: MULTIVIT/MIN/FOLATE/IRON/PREN TAB PO SCH (09:20)
[2016-10-12] MEDS ORDERED: GLUCOSE GEL 15 GRAM TUBE BUCCAL PRN (15:00)
[2016-10-12] MEDS ORDERED: DEXTROSE 50% 50 ML SYRINGE IV PRN ×2 (15:00)
[2016-10-12] MEDS ORDERED: GLUCOSE GEL 15 GRAM TUBE PO PRN ×2 (15:00)
[2016-10-12] MEDS ORDERED: GLUCAGON 1 MG INJ IM PRN (15:00)
--- NOTE | 2016-10-12 15:03 | QN ---
Documentation Comment doing well vss tracing category 1 GTT ABNORMAL Pt. will need to have diabetic consuleing Will D/C home next am on [place] OPAL SAUCEDA MD Oct 12, 2016 15:03
--- NOTE | 2016-10-12 15:04 | PD.PPDC ---
ROUTE DELIVERY DRIVER Discharge Instruction Condition Patient Condition: Good Diet Diet: Resume Regular Diet Activity/Restrictions Activity: Normal Activity May Shower Restrictions: No Exercising No Lifting No Driving No Sexual Activity Nothing in the Vagina No [place] No Tampons, douche Follow-up Follow-up with Physician: 6, Week/Weeks Return to clinic for ENGINE DISPATCHER Instructions: Fever greater than 101 Chills Worsening abdominal pain Excessive Vaginal Bleeding More than 2 pads per hour Unable to tolerate diet OB Instructions: Breast Tenderness Depression Blurried Vision Headache Surgical Instructions: Incisional Drainage Incisional Redness OPAL SAUCEDA MD Oct 12, 2016 15:04
[2016-10-12] MEDS: ACCUCHECK XX SCH (19:32)
[2016-10-13] MEDS: ACCUCHECK XX SCH ×4 (07:52→20:21)
[2016-10-13] MEDS: MULTIVIT/MIN/FOLATE/IRON/PREN TAB PO SCH (09:29)
[2016-10-13] MEDS: LABETALOL 100 MG TAB PO SCH (09:32)
[2016-10-13] MEDS ORDERED: LABE100T3 PO (13:03)
[2016-10-13] MEDS: INSULIN ASPART [NOVOLOG] 3 ML PEN SC SCH (20:05)
[2016-10-14] MEDS: ACCUCHECK XX SCH ×8 (08:09→20:51)
[2016-10-14] MEDS: MULTIVIT/MIN/FOLATE/IRON/PREN TAB PO SCH (08:31)
[2016-10-14] MEDS: LABETALOL 100 MG TAB PO SCH (08:31)
[2016-10-14] MEDS: INSULIN ASPART [NOVOLOG] 3 ML PEN SC SCH ×3 (10:00→20:05)
--- NOTE | 2016-10-14 15:32 | PN ---
Date/Time of Note Date/Time of Note DATE: 10/14/16 TIME: 15:24 OB Subjective Subjective Subjective Denies any complaints . Denies any headache, blurrred vision, denies any epigastric pain. Denies any LOF, Vaginal bleeding, reports good movement OB Objective Objective Objective GA:: A&O, NAD Abdomen: Non tender, no rebound tenderness, no rigidity. gravid Extremities: No calf tenderness, no calf tenderness. + 2 non pitting bilateral symetric edema of lower extremities Chemistry Test 10/12/16 15:46 10/12/16 19:15 10/13/16 07:52 10/13/16 10:43 Bedside Glucose 87mg/dL (70-220) 115mg/dL (70-220) 83mg/dL (70-220) 110mg/dL (70-220) Test 10/13/16 15:18 10/13/16 19:30 10/14/16 07:39 10/14/16 14:29 Bedside Glucose 93mg/dL (70-220) 108mg/dL (70-220) 75mg/dL (70-220) 89mg/dL (70-220) OB Assessment/Plan Other Assessment: Admited for elevated blood pressure now well controlled with low dose labetall No evidence of severe preclampsia, asymptomatic Currently undergoing inpatient hospital management. DASH GOODMAN MD Oct 14, 2016 15:32
[2016-10-15] MEDS: ACCUCHECK XX SCH ×6 (07:30→20:05)
--- NOTE | 2016-10-15 07:45 | QN ---
Documentation Comment doing well vss tracing catg. 1 the decision was made as per recommendation of Dr. arango to keep patient till delivery OPAL SAUCEDA MD Oct 15, 2016 07:45
[2016-10-15] MEDS: LABETALOL 100 MG TAB PO SCH (08:51)
[2016-10-15] MEDS: MULTIVIT/MIN/FOLATE/IRON/PREN TAB PO SCH (08:52)
[2016-10-15] MEDS: INSULIN ASPART [NOVOLOG] 3 ML PEN SC SCH ×2 (10:00→20:05)
[2016-10-16] MEDS: ACCUCHECK XX SCH ×8 (08:05→20:05)
[2016-10-16] MEDS: MULTIVIT/MIN/FOLATE/IRON/PREN TAB PO SCH (08:43)
[2016-10-16] MEDS: LABETALOL 100 MG TAB PO SCH (08:43)
[2016-10-16] MEDS: INSULIN ASPART [NOVOLOG] 3 ML PEN SC SCH ×3 (10:00→20:05)
--- NOTE | 2016-10-16 14:40 | QN ---
Documentation Comment doing well vss abd soft tracing catg.1 cpm OPAL SAUCEDA MD Oct 16, 2016 14:40
[2016-10-17] MEDS: ACCUCHECK XX SCH ×7 (08:38→21:04)
[2016-10-17] MEDS: MULTIVIT/MIN/FOLATE/IRON/PREN TAB PO SCH (09:19)
[2016-10-17] MEDS: LABETALOL 100 MG TAB PO SCH (09:20)
[2016-10-17] MEDS: INSULIN ASPART [NOVOLOG] 3 ML PEN SC SCH ×3 (10:00→20:05)
--- NOTE | 2016-10-17 22:34 | QN ---
Documentation Comment HD #27. 35 y.o. A1 with an IUP at 33 weeks with preeclampsia and GDM. S/P steroids 09/20 and 5. On Labetalol. 24 hr urine TP was 4700 09/21, then 1040 10/05. BP's stable. Tracing category 1.BS's all in range on diet only. Plan: deliver at 34 weeks although pt wishes, if she is stable, to wait beyond that time. Told her to discuss that with both Dr Winslow and Dr Lester. ZACKARY LOW MD Oct 17, 2016 22:34
[2016-10-18] MEDS: ACCUCHECK XX SCH ×7 (07:30→20:05)
[2016-10-18] MEDS: LABETALOL 100 MG TAB PO SCH (09:00)
[2016-10-18] MEDS: INSULIN ASPART [NOVOLOG] 3 ML PEN SC SCH ×3 (10:00→20:05)
[2016-10-18] MEDS: MULTIVIT/MIN/FOLATE/IRON/PREN TAB PO SCH (10:40)
[2016-10-19] MEDS: ACCUCHECK XX SCH ×8 (07:40→20:34)
[2016-10-19] MEDS: LABETALOL 100 MG TAB PO SCH (08:47)
[2016-10-19] MEDS: MULTIVIT/MIN/FOLATE/IRON/PREN TAB PO SCH (08:47)
--- NOTE | 2016-10-19 08:51 | QN ---
Documentation Comment doing well vss tracing catg. 1 cpm OPAL SAUCEDA MD Oct 19, 2016 08:51
[2016-10-19] MEDS: INSULIN ASPART [NOVOLOG] 3 ML PEN SC SCH ×3 (10:00→20:05)
[2016-10-20] MEDS: ACCUCHECK XX SCH ×8 (02:45→20:05)
--- NOTE | 2016-10-20 08:22 | QN ---
Documentation Comment pt. w/o complaints vss tracing catg.1 OPAL SAUCEDA MD Oct 20, 2016 08:22
[2016-10-20] MEDS: LABETALOL 100 MG TAB PO SCH (08:52)
[2016-10-20] MEDS: MULTIVIT/MIN/FOLATE/IRON/PREN TAB PO SCH (09:00)
[2016-10-20] MEDS: INSULIN ASPART [NOVOLOG] 3 ML PEN SC SCH ×2 (10:00→14:00)
[2016-10-20] MEDS: ACETAMINOPHEN 500 MG TAB PO PRN (20:33)
[2016-10-21] MEDS: ACCUCHECK XX SCH ×6 (07:30→20:05)
--- NOTE | 2016-10-21 08:37 | RADRPT ---
PROCEDURE: US OB. CLINICAL INDICATION: Size and dates TECHNIQUE: Multiple sonographic images of the pelvis and gravid uterus were obtained. The images were reviewed on a PACS workstation. COMPARISON: 09/20/2016 FINDINGS: The study is limited due to the patient's body habitus. There is a single viable intrauterine gestation. Cardiac activity is present with 128 beats per min topher. There is a breech presentation. The placenta is anterior. There is no evidence for an abruption or placenta previa. There is a decreased amount of amniotic fluid with an SALIMA = 3.2 cm. Measurements were made in order to determine age. The results are as follows: BPD =7.9 cm HC =28.8 cm AC =unable to measure FL =5.3 cm Estimated gestational age of approximately 30 weeks and 4 days based on ultrasound measurements. Clinical age: 33 weeks and 4 days. The estimated date of delivery is 12/26/16, based on ultrasound measurements. The EFW = not calculated RPTAT: AA IMPRESSION: Limited study. The abdominal circumference could not be measured. Single viable intrauterine gestation of approximately 30 weeks and 4 days based on ultrasound measu rements. Oligohydramnios. .Petar Marroquin MD, MD Date Time Electronically viewed and signed by .Petar Marroquin MD, on 10/21/2016 08:36 .S/
[2016-10-21] MEDS: MULTIVIT/MIN/FOLATE/IRON/PREN TAB PO SCH (08:56)
[2016-10-21] MEDS: LABETALOL 100 MG TAB PO SCH (08:57)
[2016-10-21] MEDS: INSULIN ASPART [NOVOLOG] 3 ML PEN SC SCH ×3 (10:00→20:05)
--- NOTE | 2016-10-21 12:58 | RADRPT ---
PROCEDURE: Limited OB ultrasound CLINICAL INDICATION: Intrauterine growth restriction TECHNIQUE: Sonographic evaluation to assess the cervical length was performed. Transabdominal jaleesa ging of the gravid uterus was performed. COMPARISON: Limited OB ultrasound performed earlier on the same date FINDINGS: There is a single live intrauterine with cardiac activity, with a heart rate o f 121 bpm. position is breech. The placenta is anterior/fundal. The peak systolic velocity at the level of the cord insertion is 29.2 cm/sec. The end-diastolic velocity is 8.9 cm/sec. The S /D ratio is 3.3. IMPRESSION: 1. Single live intrauterine . 2. Peak systolic velocity of 29.2 cm/s, end-diastolic velocity of 8.9 cm/s, and S/D ratio of 3.3. RPTAT: HH .Elise Golden MD, Date Time Electronically viewed and signed by .Elise Golden MD, on 10/21/2016 12:58 .G/
[2016-10-21 13:08] LABS: BASOPHIL # 0.1 10^3/ul (0.0-0.1); BASOPHILS % 0.4 % (0.0-2.0); EOSINOPHILS # 0.2 10^3/ul (0.0-0.5); EOSINOPHILS % 1.3 % (0.0-7.0); HEMATOCRIT 43.9 % (37.0-47.0); HEMOGLOBIN 14.9 g/dl (12.0-16.0); LYMPHOCYTES # 3.7 10^3/ul (0.8-2.9); LYMPHOCYTES % 26.8 % (15.0-51.0); MEAN CORPUSCULAR HEMOGLOBIN 31.4 pg (29.0-33.0); MEAN CORPUSCULAR VOLUME 92.2 fl (82.0-101.0); MEAN PLATELET VOLUME 8.5 fl (7.4-10.4); MONOCYTE # 0.7 10^3/ul (0.3-0.9); MONOCYTES % 5.3 % (0.0-11.0); NEUTROPHIL # 9.1 10^3/ul (1.6-7.5); NEUTROPHILS % 66.2 % (39.0-77.0); PLATELET COUNT 223 10^3/UL (140-440); RED BLOOD COUNT 4.76 10^6/ul (4.20-5.40); RED CELL DISTRIBUTION WIDTH 15.4 % (11.5-14.5); UNCORRECTED WBC 13.7 10^3/ul (4.8-10.8); WHITE BLOOD COUNT 13.7 10^3/ul (4.8-10.8)
[2016-10-21 13:15] LABS: CONDITION 1
[2016-10-21 13:16] LABS: LH ANALYZER COMMENTS 1
[2016-10-21 13:17] LABS: POTASSIUM 4.4 mmol/L (3.5-5.1)
[2016-10-21 13:18] LABS: CREATININE 0.67 mg/dl (0.44-1.00); INR 0.86; PROTIME 11.7 Sec (12.2-14.2); PT RATIO 0.9
[2016-10-21 13:19] LABS: ALBUMIN/GLOBULIN RATIO 0.85; BILIRUBIN,INDIRECT 0.1 mg/dl (0-1.1); BILIRUBIN,TOTAL 0.1 mg/dl (0.2-1.3); PARTIAL THROMBOPLASTIN TIME 28.6 Sec (25.0-35.0); TOTAL PROTEIN 6.5 g/dl (6.1-8.1); URIC ACID 7.2 mg/dl (3.1-7.9)
[2016-10-21 13:20] LABS: CALCIUM 9.3 mg/dl (8.4-10.2)
--- NOTE | 2016-10-21 16:52 | PN ---
Date/Time of Note Date/Time of Note DATE: 10/21/16 TIME: 16:37 OB Subjective Subjective Subjective Reports had some headache in the occipital part of her head with radiation to the neck last night, Denies any blurred vision, epigastric pain, Denies any LOF , vaginal bleeding or uterine contractions. reports good movement. OB Objective Objective Objective Hematology - 72 Hrs Test 10/21/16 12:45 Basophils # 0.110^3/ul (0.0-0.1) Basophils % 0.4% (0.0-2.0) Blood Morphology Comment Eosinophils # 0.210^3/ul (0.0-0.5) Eosinophils % 1.3% (0.0-7.0) Hematocrit 43.9% (37.0-47.0) Hemoglobin 14.9g/dl (12.0-16.0) Lymphocytes # 3.710^3/ul (0.8-2.9) H Lymphocytes % 26.8% (15.0-51.0) Mean Corpuscular Hemoglobin 31.4pg (29.0-33.0) Mean Corpuscular Hemoglobin Concent 34.0g/dl (32.0-37.0) Mean Corpuscular Volume 92.2fl (82.0-101.0) Mean Platelet Volume 8.5fl (7.4-10.4) Monocytes # 0.710^3/ul (0.3-0.9) Monocytes % 5.3% (0.0-11.0) Neutrophils # 9.110^3/ul (1.6-7.5) H Neutrophils % 66.2% (39.0-77.0) Nucleated Red Blood Cells # 0.010^3/ul (0.0-0.0) Nucleated Red Blood Cells % 0.0/100WBC (0.0-0.0) Platelet Count 04445^3/UL (140-440) Red Blood Count 4.7610^6/ul (4.20-5.40) Red Cell Distribution Width 15.4% (11.5-14.5) H White Blood Count 13.710^3/ul (4.8-10.8) H Chemistry Test 10/18/16 19:20 10/19/16 07:38 10/19/16 11:51 10/19/16 15:04 Bedside Glucose 107mg/dL (70-220) 69mg/dL (70-220) L 86mg/dL (70-220) 82mg/dL (70-220) Test 10/19/16 19:49 10/20/16 08:37 10/20/16 10:36 10/20/16 14:52 Bedside Glucose 93mg/dL (70-220) 74mg/dL (70-220) 113mg/dL (70-220) 97mg/dL (70-220) Test 10/20/16 19:33 10/21/16 07:34 10/21/16 10:46 10/21/16 12:45 Bedside Glucose 97mg/dL (70-220) 70mg/dL (70-220) 112mg/dL (70-220) Alanine Aminotransferase (ALT/SGPT) 34IU/L (13-69) Albumin 3.0g/dl (3.3-4.9) L Albumin/Globulin Ratio 0.85 Alkaline Phosphatase 231IU/L (42-121) H Anion Gap 13 (8-16) Aspartate Amino Transf (AST/SGOT) 27IU/L (15-46) Blood Urea Nitrogen 12mg/dl (7-20) Calcium Level 9.3mg/dl (8.4-10.2) Carbon Dioxide Level 20mmol/L (21-31) L Chloride Level 108mmol/L (97-110) Creatinine 0.67mg/dl (0.44-1.00) Direct Bilirubin 0.00mg/dl (0.00-0.20) Globulin 3.50g/dl (1.3-3.2) H Glucose Level 77mg/dl (70-220) Indirect Bilirubin 0.1mg/dl (0-1.1) Potassium Level 4.4mmol/L (3.5-5.1) Sodium Level 137mmol/L (135-144) Total Bilirubin 0.1mg/dl (0.2-1.3) L Total Protein 6.5g/dl (6.1-8.1) Uric Acid 7.2mg/dl (3.1-7.9) Test 10/21/16 15:01 Bedside Glucose 131mg/dL (70-220) GA: A&O, NAD, obese Abdomen: soft, gravid Extremities No calf tenderness, no click, no edema NST: Cat 1 No contractions on the monitor PIH labs ordered this morning and pending. Patient currently denies any symptoms and her BPs are all well controlled. OB Assessment/Plan Other Assessment: IUP at 33 weeks and 4 days Admitted for elevated BP and proteinuria concerning for Preclampsia PIH labs normal Proteinuria decreased from 4 grams now to 1040 in last 24 hour urine collection Us with evidence of IUGR, 7% EFW Recommended to have Doppler of UA Currently NST Cat 1 Follow up with UA doppler Continue NST In hospital expectant management per recommendation and delivery at 34 weeks, or sooner in case of severe preclampsia symptoms or other Obstetrical indications DASH GOODMAN MD Oct 21, 2016 16:47
[2016-10-22] MEDS: ACCUCHECK XX SCH ×5 (07:30→19:35)
[2016-10-22] MEDS: MULTIVIT/MIN/FOLATE/IRON/PREN TAB PO SCH (09:34)
[2016-10-22] MEDS: LABETALOL 100 MG TAB PO SCH (09:34)
--- NOTE | 2016-10-22 09:42 | QN ---
Documentation Comment 33 weeks with low maritza of 3 cm . breech presentation will do c/s today OPAL SAUCEDA MD Oct 22, 2016 09:42
[2016-10-22] MEDS ORDERED: LACTATED RINGER'S 1,000 ML IV SCH (12:59)
[2016-10-22] MEDS ORDERED: CARBOPROST 250 MCG INJ IM PRN ×2 (13:00→21:30)
[2016-10-22] MEDS ORDERED: MISOPROSTOL 200 MCG TAB PR PRN ×2 (13:00→21:30)
[2016-10-22] MEDS ORDERED: METHYLERGONOVINE 0.2 MG INJ IM PRN ×2 (13:00→21:30)
[2016-10-22] MEDS ORDERED: OXYTOCIN 30 UNITS/LR 500 ML IV PRN ×2 (13:00→21:30)
[2016-10-22] MEDS ORDERED: OXYTOCIN 30 UNITS/LR 500 ML IV SCH (13:00)
[2016-10-22 13:11] LABS: BASOPHIL # 0.1 10^3/ul (0.0-0.1); BASOPHILS % 0.4 % (0.0-2.0); EOSINOPHILS # 0.1 10^3/ul (0.0-0.5); EOSINOPHILS % 0.9 % (0.0-7.0); HEMATOCRIT 44.9 % (37.0-47.0); HEMOGLOBIN 15.2 g/dl (12.0-16.0); LYMPHOCYTES # 3.7 10^3/ul (0.8-2.9); LYMPHOCYTES % 28.2 % (15.0-51.0); MEAN CORPUSCULAR HEMOGLOBIN 31.8 pg (29.0-33.0); MEAN CORPUSCULAR HGB CONC 33.8 g/dl (32.0-37.0); MEAN PLATELET VOLUME 9.2 fl (7.4-10.4); MONOCYTE # 0.5 10^3/ul (0.3-0.9); MONOCYTES % 3.8 % (0.0-11.0); NEUTROPHIL # 8.7 10^3/ul (1.6-7.5); NEUTROPHILS % 66.7 % (39.0-77.0); PLATELET COUNT 216 10^3/UL (140-440); RED BLOOD COUNT 4.78 10^6/ul (4.20-5.40)
[2016-10-22 13:13] LABS: CONDITION 1; LH ANALYZER COMMENTS 1
[2016-10-22 13:14] LABS: INR 0.91; PROTIME 12.2 Sec (12.2-14.2)
[2016-10-22 13:15] LABS: PARTIAL THROMBOPLASTIN TIME 28.1 Sec (25.0-35.0)
[2016-10-22] MEDS ORDERED: CLINDAMYCIN 900 MG/D5W (PMX) 50 ML IV SCH (13:30)
[2016-10-22] MEDS ORDERED: DEXTROSE 5%-LR 1,000 ML IV SCH (13:30)
--- NOTE | 2016-10-22 15:50 | RADRPT ---
PROCEDURE: US OB CLINICAL INDICATION: Decelerations, evaluate for intrauterine growth retardation TECHNIQUE: Multiple sonographic images of the pelvis were obtained. The images were reviewed on a PACS workstation. COMPARISON: Obstetrical ultrasound from 10/21/2016 FINDINGS: The cervix is not well visualized. There is a single viable intrauterine gestation. Cardiac activity is present with 141 beats per minute. There is a breech presentation. The placenta is fundal. There is no evidence for an abruption or placenta previa. There is a subjectively normal amount of amniotic fluid. Measurements were made in order to determine age. The results are as follows (cm): BPD =8.01 HC =29.19 AC =28.51 FL =6.22 Estimated gestational age by ultrasound of approximately 32 weeks, 2 days. The estimated date of delivery by ultrasound is 12/15/2016. Reported gestational age by LMP of approximately 33 weeks, 5 days. The reported date of delivery by LMP is 12/05/2016. EFW = 1962 grams (11th percentile) IMPRESSION: Single viable intrauterine gestation of approximately 32 weeks, 2 days . The estimated date of delivery is 12/15/2016 . Dating by ultrasound is within 10 days of dating by LMP. Estimated weight is in the 11th percentile. RPTAT: EE Physician Alejo Date Time Electronically viewed and signed by Physician Alejo on 10/22/2016 15:50 /
[2016-10-22] MEDS ORDERED: OXYTOCIN 10 UNIT INJ ONE (16:19)
[2016-10-22] MEDS ORDERED: ONDANSETRON 4 MG INJ ONE (16:19)
[2016-10-22] MEDS ORDERED: morphine SULFATE/PF (10 MG/10 ML) INJ ONE (16:19)
[2016-10-22] MEDS ORDERED: METOCLOPRAMIDE 10 MG INJ ONE (16:19)
[2016-10-22] MEDS ORDERED: OXYTOCIN 30 UNITS/LR 500 ML IV ONE (16:19)
[2016-10-22] MEDS ORDERED: EPHEDrine SULFATE 50 MG/5 ML SYG ONE (16:19)
[2016-10-22] MEDS ORDERED: MIDAZOLAM 1 MG/ML 2 ML INJ ONE ×2 (16:51→16:58)
--- NOTE | 2016-10-22 17:18 | OPR ---
Operative Report Planned Procedure Free Text/Dictation 33 wks with oligo repeat c/s breech, Procedure date Oct 22, 2016 Procedure(s) repeat c/s and lysis of omental adhesions Performed by: OPAL SAUCEDA MD Assisting provider: DELMIS BALTAZAR MD Anesthesia Type: spinal Procedure Description Under satisfactory [spinal anesthesia, the patient was prepped and draped and placed in a supine position, tilted to the left. Pfannenstiel incision was made , carried through the subcutaneous tissue. Bleeders brought under control with electrocautery. Fascia incised to the length of the incision. Rectus muscles from the fascia, divided midline. Peritoneum exposed, entered through a transverse incision. Exploration of abdomen revealed gravid uterus and multiple adhesions of the omentum to the lower uterine segment which were clamped. cut and suture ligated to be able to visulaize the lower segment. Bladder flap was developed. Transverse incision was made in the lower segment of the uterus. Amniotic sac ruptured. clear amniotic fluid noted. [the fetus was delivered in manuela breech presentation and the ] Nasal oropharyngeal suction was performed. The baby was handed to the team for immediate attention. The placenta was delivered manually intact. Uterine cavity was cleaned with wet sponge and drainage established. Uterus closed in 2 layers using [] in continuous fashion. Peritoneal cavity irrigated with warm saline. Sponge, needle and instrument count reported to be correct. Abdominal peritoneum closed with [] continuously. Rectus muscle approximated with []. Fascia closed with []one monocryl, and skin closed with diandra. Estimated blood loss [700]mL. Post-Procedure Findings: Live Baby [], Apgars [] and [], weight [], position [], [] presentation []cord. Specimen removed: Yes Pt Condition post procedure: stable Disposition: PACU Physician Certification I, the undersigned physician, hereby certify that I have discussed the procedure described in this consent form with this patient (or the patient's legal account representative), including: * The risk and benefits of the procedure; * Any adverse reactions that may reasonably be expected to occur; * Any alternative efficacious methods of treatment which may be medically viable ; * The potential problems that may occur during recuperation; * Potential for blood transfusion and associated risks/benefits; and * Any research or economic interest I may have regarding this treatment. I further certify that the patient/legally responsible person was encouraged to ask question and that all questions were answered. OPAL SAUCEDA MD Oct 22, 2016 17:18
[2016-10-22] MEDS ORDERED: morphine 2 MG INJ IV PRN ×2 (17:30)
[2016-10-22] MEDS ORDERED: HYDROmorphONE 1 MG/ML SYG IV PRN ×2 (17:30)
[2016-10-22] MEDS ORDERED: ONDANSETRON 4 MG INJ IV PRN (17:30)
[2016-10-22] MEDS ORDERED: morphine SULFATE/PF (10 MG/10 ML) INJ SPINAL ONE (17:30)
[2016-10-22] MEDS ORDERED: EPHEDrine SULFATE 50 MG/5 ML SYG IV PRN (17:30)
[2016-10-22] MEDS ORDERED: NALOXONE (0.4 MG/ML) INJ IV PRN (17:30)
[2016-10-22] MEDS ORDERED: DIPHENHYDRAMINE 50 MG INJ IV PRN (17:30)
[2016-10-22] MEDS ORDERED: MAGNESIUM SULFATE 4 GM/100 ML 100 ML IV ONE (18:30)
[2016-10-22] MEDS: MAGNESIUM SULFATE 20 GM/500 ML 500 ML IV SCH (19:31)
[2016-10-22 20:30] VITALS: BP 150/76; PULSE 77; RESP 19
--- NOTE | 2016-10-22 20:44 | DELSUM ---
Delivery Summary A-C Datetime Report Generated by CPN: 10/22/2016 20:44 DELIVERY PERSONNEL Behavioral Intervention Specialist: Maranda, Raeann MATERNAL INFORMATION Delivery Anesthesia: Spinal Medications in Delivery: SEE ANESTHESIOLOGIST NOTES Estimated Blood Loss (ml): 700 Placenta Cultured: Yes Maternal Complications: Other Other Maternal Complications: REPEAT , LOW SALIMA, PROLONGED DECELS, GDM, PRE-ECLAMPSIA LABOR SUMMARY EDC: 12/05/2016 00:00 No. Babies in Womb: 1 Attempted: No Labor Anesthesia: None LABOR INFORMATION Reason for Induction: Not Applicable Oxytocin: N/A Group B Beta Strep: Not Done Antibiotics # of Doses: 1 Antibiotics Time of Last Dose: CLINDAMCIN 900MG Steroids Given: Full Course Reason Steroids Not Administered: Indication; Maternal Indication MEMBRANES Membranes Rupture Method: Artificial Rupture of Membranes: 10/22/2016 16:46 Length of Rupture (hr): 0.02 Amniotic Fluid Color: Clear Amniotic Fluid Amount: Small Amniotic Fluid Odor: Normal STAGES OF LABOR Stage 3 hr: 0 Stage 3 min: 1 VAGINAL DELIVERY Episiotomy: None Laceration Extension: N/A Laceration Type: None CSECTION DELIVERY Primary Indication: Repeat Elective Other Primary Indication: REPEAT , LOW SALIMA, PROLONGED DECELS Secondary Indication: Repeat Elective CSection Urgency: Elective CSection Incidence: Repeat Labor: N/A Elective: N/A CSection Incision: Lower Uterine Transverse BABY A INFORMATION Infant Delivery Date/Time: 10/22/2016 16:47 Method of Delivery: Born in Route : No : N/A Forceps: N/A Vacuum Extraction: N/A Shoulder Dystocia : N/A SHOULDER DYSTOCIA BABY A Delivery Date/Time: 10/22/2016 16:47 PRESENTATION/POSITION BABY A Presentation: Breech Cephalic Presentation: N/A Breech Presentation: Complete PLACENTA INFORMATION BABY A Placenta Delivery Time : 10/22/2016 16:48 Placenta Method of Delivery: Manual Removal Placenta Status: Retained SCORES BABY A Heart Rate 1 min: >100 bpm Resp Effort 1 min: Good Cry Reflex Irritability 1 min: Cough/Sneeze/Pulls Away Muscle Tone 1 min: Active Motion Color 1 min: Body [place], Extremit Blue Resuscitation Effort 1 min: Tactile Stimulation SCORE 1 MIN: 9 Heart Rate 5 min: >100 bpm Resp Effort 5 min: Good Cry Reflex Irritability 5 min: Cough/Sneeze/Pulls Away Muscle Tone 5 min: Active Motion Color 5 min: Body [place], Extremit Blue Resuscitation Effort 5 min: Tactile Stimulation SCORE 5 MIN: 9 INFORMATION BABY A Gestational Age at Delivery: 33.5 Gestational Status: - <34 Weeks Outcome : Liveborn Infant Condition : Stable Sex: Male IDENTIFICATION/MEDS BABY A ID Band Number: [id number] ID Band Location: Right Leg; Left Arm Sensor Applied: No Vitamin K Given : Not Given Erythromycin Given: Not Given WEIGHT/LENGTH BABY A Infant Birthweight (gm): 1410 Infant Weight (lb): 3 Weight (oz): 2 CORD INFORMATION BABY A No. Cord Vessels: 3 Nuchal Cord : N/A Cord Blood Taken: N/A Infant Suction: Mouth; Nose ASSESSMENT BABY A Infant Complications: Multiple Variable Decels Physical Findings at Delivery: Within Normal Limits Infant Respirations: Appears Normal Wine Steward/ALS Called : Yes Infant Care By: DOUG POLLOCK Transferred To: NICU
--- NOTE | 2016-10-22 20:44 | OPRPT ---
Intraop Record Datetime Report Generated by CPN: 10/22/2016 20:44 Datetime: 10/22/2016 20:15 Sequential Compression Device: Yes Datetime: 10/22/2016 20:00 Sequential Compression Device: Yes Datetime: 10/22/2016 19:46 Sequential Compression Device: Yes Datetime: 10/22/2016 19:30 Sequential Compression Device: Yes Datetime: 10/22/2016 19:16 Sequential Compression Device: Yes Datetime: 10/22/2016 19:04 Sequential Compression Device: Yes Datetime: 10/22/2016 18:49 Sequential Compression Device: Yes Datetime: 10/22/2016 18:34 Sequential Compression Device: Yes Datetime: 10/22/2016 18:19 Sequential Compression Device: Yes Datetime: 10/22/2016 18:04 Sequential Compression Device: Yes Datetime: 10/22/2016 17:49 Sequential Compression Device: Yes Datetime: 10/22/2016 17:34 Sequential Compression Device: Yes Datetime: 10/22/2016 17:19 Sequential Compression Device: Yes Datetime: 10/22/2016 14:55 OR Number: 2 TIMES/PROCEDURE Arrive OR: 10/22/2016 16:01 Depart OR: 10/22/2016 17:26 Anesthesia Start: 10/22/2016 16:17 Anesthesia End: 10/22/2016 17:26 Surgery Start: 10/22/2016 16:45 Surgery End: 10/22/2016 17:13 Preoperative Dx: REPEAT CESEAREAN SECTION Surgical Procedure: Section Postoperative Dx: POST CESEAREAN SECTION C/S Decision Time: 10/22/2016 09:30 C/S Decision to Incision (min): 435 Uterine Incision: 10/22/2016 16:45 PERSONNEL Surgeon: Clint Lester Scrub: Amaris Hyman Anesthesia Care Provider: Axel Bolaños Care: See Delivery Summary for Infant Care Providers Others in OR: DOUG POLLOCK, RICKEY KENNY, REBA JASSO, MARCO MCINTYRE Anesthesia Type: Spinal ASA Level: III RISK FOR INJURY Mode of Arrival: Ambulate Procedure Time Out: Correct Patient Identity; Correct Side and Site are Marked (if applicable); Acc urate Procedure Consent Form; Agreement on Procedure to be Done; Correct Patient Position; Relevant Images and Results are Properly Labeled and Displayed; Addressed Need to Administer Antibiotics or F luids for Irrigation; Safety Precautions Based on Patient History or Medication Use; Allergies Revie wed Preoperative Information: Preoperative Checklist Reviewed; Allergies Reviewed; NPO Status Verified RISK FOR ANXIETY/KNOW DEFICIT Emotional Status: Calm/Relaxed Interventions: Provided Education Based on Age and Identified Needs; Communicated Patient Concerns to Appropriate Members of the Health Care Team; Explained Sequence of Events and Perioperative Routi ne; Evaluated Response to Instructions RISK FOR PAIN Pain Teaching: Instructed on Pain Scale Pain Scale: 0.0 PREOPERATIVE OUTCOMES Preoperative Outcomes: Verbalizes/Indicates Decreased Anxiety, Ability to [place], Understanding of Pr ocedure and Sequence of Events. Questions Answered; Demonstrates Adequate Pain Management; Verbaliz es Comfort Related to Transfer/Transport RISK FOR INFECTION Skin Pre-Operative Site: Intact Clip: Clip Clip Location: CLOSED LOWER ABDOMEN Prep: Yes Prep By: TAYLOR LEI Prep Solution: Povidone Iodine Catheter: Jones Catheter Size: 16 Catheter Inserted By: TAYLOR LEI RN Surgical Wound Class: I-Clean Dressing Type: Secured Gauze; Transparent Dressing Other Dressing Types: ABD/TELFA Risk for Impaired Skin Integrity Position in OR: Supine Bony Prominences Protection: Arms Tucked/Padded Positioning Devices: Leg Acevedo Risk for Hypothermia Warming Interventions: Warm Sondheimer(s); Warm Irrigation Risk for Injury Safety Straps Applied: Legs Sequential Compression Device: Yes Electrosurgical Unit: Yes Electrosurgical Unit Number: [id number] Bipolar Number: [id number] Ground Pad Location: Right Lateral Thigh Coag Number: 55 Cut Number: 55 Estimated Blood Loss- OR (ml): 700 1st Count Sponge Count: Correct Needle Count: Correct Blade Count: Correct Instrument Count: Correct 2nd Count Sponge Count: Correct Needle Count: Correct Blade Count: Correct Instrument Count: Correct 3rd Count Sponge Count: Correct Needle Count: Correct Blade Count: Correct Instrument Count: Correct Final Count Sponge Count 4: Correct Needle Count 4: Correct Blade Count 4: Correct Instrument Count 4: Correct Surgeon Acknowledged Count: Yes Final Count Resolution: Count Correct Intraoperative Data Equipment: Non-Invasive Blood Pressure; Pulse Oximeter; EKG Blood Products Given: N/A Implants/Prosthesis Implants/Prosthesis: N/A Grafts: N/A Irrigation Irrigants: NACL; Sterile H2O Irrigation Amount: 2L Specimens Specimens: N/A Cultures Cultures: N/A X-Ray X-Ray Taken: No Postoperative Skin: Dry Pain Scale: 0 Condition: Awake; Alert Temperature: 98.5 Operative Outcomes: Patient's Surgery Performed Using Aseptic Technique and in a Manner to Prevent Cross-Contamination; Skin Remains Smooth, Intact, Non-reddened, Non-irritated, Free of Bruising; Cor e Body Temperature Remains in Expected Range Transfer To: L_D Datetime: 09/20/2016 02:29 Food Allergies/Reactions: NONE Latex Allergies/Reactions: No Latex Allergies Datetime: 09/20/2016 00:29 Drug Allergies/Reactions: Penicillins/OK/rash (09/20/2016) Datetime: 08/04/2016 08:36 Drug Allergies/Reactions: No Known Allergies/OK (11/19/2010)
[2016-10-22 21:00] VITALS: BP 116/70; PULSE 76; RESP 19
[2016-10-22] MEDS: OXYTOCIN 30 UNITS/LR 500 ML IV SCH (21:02)
[2016-10-22] MEDS: LACTATED RINGER'S 1,000 ML IV SCH (21:02)
[2016-10-22] MEDS ORDERED: NA PHOSPHATE/BIPHOS 133 ML ENEMA PR PRN (21:30)
[2016-10-22] MEDS ORDERED: ACETAMINOPHEN/CODEINE #3 TAB PO PRN (21:30)
[2016-10-22] MEDS ORDERED: LANOLIN 7 GM TUBE TOP PRN (21:30)
[2016-10-22] MEDS ORDERED: NACL 0.9% 3 ML SYG IV SCH (21:30)
[2016-10-22 22:00] VITALS: BP 110/67; PULSE 82; RESP 19
[2016-10-23] VITALS (13 sets, daily range): BP systolic 102–125; BP diastolic 59–76; PULSE 83–98; RESP 17–20
[2016-10-23] MEDS: OXYTOCIN 30 UNITS/LR 500 ML IV SCH ×2 (00:01→06:09)
[2016-10-23] MEDS: KETOROLAC 30 MG INJ IV PRN ×2 (04:39→16:00)
[2016-10-23] MEDS: LACTATED RINGER'S 1,000 ML IV SCH ×3 (05:02→21:02)
[2016-10-23] MEDS: MAGNESIUM SULFATE 20 GM/500 ML 500 ML IV SCH (05:59)
[2016-10-23 07:07] LABS: BASOPHIL # 0.1 10^3/ul (0.0-0.1); BASOPHILS % 0.5 % (0.0-2.0); EOSINOPHILS # 0.1 10^3/ul (0.0-0.5); EOSINOPHILS % 0.4 % (0.0-7.0); HEMATOCRIT 38.3 % (37.0-47.0); HEMOGLOBIN 13.4 g/dl (12.0-16.0); LYMPHOCYTES # 3.9 10^3/ul (0.8-2.9); MEAN CORPUSCULAR HEMOGLOBIN 32.4 pg (29.0-33.0); MEAN CORPUSCULAR HGB CONC 35.1 g/dl (32.0-37.0); MEAN CORPUSCULAR VOLUME 92.4 fl (82.0-101.0); MEAN PLATELET VOLUME 8.4 fl (7.4-10.4); MONOCYTES % 5.9 % (0.0-11.0); NEUTROPHIL # 12.7 10^3/ul (1.6-7.5); NEUTROPHILS % 71.2 % (39.0-77.0); PLATELET COUNT 200 10^3/UL (140-440); RED BLOOD COUNT 4.14 10^6/ul (4.20-5.40); RED CELL DISTRIBUTION WIDTH 14.9 % (11.5-14.5); UNCORRECTED WBC 17.8 10^3/ul (4.8-10.8); WHITE BLOOD COUNT 17.8 10^3/ul (4.8-10.8)
[2016-10-23 07:21] LABS: CONDITION 1
[2016-10-23 07:22] LABS: LH ANALYZER COMMENTS 1
--- NOTE | 2016-10-23 08:52 | QN ---
Documentation Comment doing well vss abd soft incision clean and dry d/c magnesium OPAL Bowman MD Oct 23, 2016 08:52
[2016-10-23] MEDS ORDERED: INFLUENZA VIRUS VACCINE 0.5 ML (DISPENSING) IM* ONE (09:00)
[2016-10-23] MEDS: IBUPROFEN 800 MG TAB PO SCH (21:31)
[2016-10-24] VITALS (7 sets, daily range): BP systolic 112–130; BP diastolic 59–91; PULSE 78–92; RESP 17–18
[2016-10-24] MEDS: IBUPROFEN 800 MG TAB PO SCH ×3 (05:23→22:56)
[2016-10-24] MEDS: OXYCODONE/ACETAMINOPHEN (5/325) TAB PO PRN ×3 (06:28→20:04)
--- NOTE | 2016-10-24 13:13 | PN ---
Date/Time of Note Date/Time of Note DATE: 10/24/16 TIME: 13:10 OB Subjective Subjective Subjective Post C Section day 2 Patient is doing well, Ambulatory She is afebrile Abdomen is soft , Fundus is firm Moderate amount of lochia Breasts are soft, Nipples are intact No calf tenderness. Incision is healing well Laboratory Tests Test 10/23/16 16:08 10/23/16 21:35 10/24/16 07:51 10/24/16 11:19 Bedside Glucose 138mg/dL 138mg/dL 94mg/dL 120mg/dL Current Medications Medications (Trade) Dose Ordered Sig/Doyle Route PRN Reason Start Time Stop Time Status Last Admin Dose Admin Lactated Ringer's 1,000 ml @ 75 mls/hr [id number] IV 09/20/16 01:51 09/28/16 09:11 DC 09/28/16 01:06 Magnesium Sulfate 100 ml @ 200 mls/hr ONCE ONCE IV 09/20/16 02:00 09/20/16 02:29 DC 09/20/16 03:26 Magnesium Sulfate (Magnesium Sulfate 20 Gm/500 ml) 500 ml @ 50 mls/hr Q10H IV 09/20/16 01:51 09/21/16 12:03 DC 09/21/16 00:50 Betamethasone Acet/Betameth SodPhos (Celestone Soluspan) 12 mg Q24H IM 09/20/16 02:00 09/21/16 02:01 DC 09/21/16 04:03 Prenat Multivit/ Circuitry Negative Inspector/Iron/Folic Ac ( S) 1 tab DAILY PO 09/20/16 09:00 10/22/16 21:09 DC 10/22/16 09:34 Acetaminophen (Tylenol Tab) 1,000 mg Q6 PRN PO PAIN AND OR ELEVATED TEMP 09/20/16 02:00 09/20/16 02:51 DC Ondansetron HCl (Zofran Inj) 4 mg Q6H PRN IV NAUSEA AND/OR VOMITING 09/20/16 02:00 10/22/16 21:09 DC Acetaminophen (Tylenol Tab) 1,000 mg Q6H PRN PO PAIN AND OR ELEVATED TEMP 09/20/16 03:00 10/22/16 21:09 DC 10/20/16 20:33 Labetalol HCl (Normodyne) 100 mg BID PO 09/20/16 11:00 10/06/16 12:05 DC 10/06/16 09:15 Labetalol HCl (Normodyne) 100 mg DAILY PO 10/07/16 09:00 10/22/16 21:09 DC 10/22/16 09:34 Diagnostic Test (Pha) (Accucheck) 1 ea FBSPP XX 10/12/16 20:05 10/22/16 07:30 Miscellaneous Information (* Miscellaneous Pharmacy Order) 1 ea OB HYPOGLYCEMIA ONCE XX 10/12/16 14:30 10/12/16 14:46 DC Miscellaneous Information 1 ea NOTE XX 10/12/16 15:00 10/22/16 21:09 DC Glucose (Glutose) 15 gm Q15M PRN PO DECREASED GLUCOSE 10/12/16 15:00 10/22/16 21:09 DC Glucose (Glutose) 22.5 gm Q15M PRN PO DECREASED GLUCOSE 10/12/16 15:00 10/22/16 21:09 DC Dextrose (D50w Syringe) 25 ml Q15M PRN IV DECREASED GLUCOSE 10/12/16 15:00 10/22/16 21:09 DC Dextrose (D50w Syringe) 50 ml Q15M PRN IV DECREASED GLUCOSE 10/12/16 15:00 10/22/16 21:09 DC Glucagon (Glucagen) 1 mg Q15M PRN IM DECREASED GLUCOSE 10/12/16 15:00 10/22/16 21:09 DC Glucose (Glutose) 15 gm Q15M PRN BUCCAL DECREASED GLUCOSE 10/12/16 15:00 10/22/16 21:09 DC Insulin Aspart (Novolog Insulin Pen) 2 HOURS AFTER MEALS SC 10/13/16 20:05 10/22/16 21:09 DC Diagnostic Test (Pha) 1 ea 1 ea FBSPP XX 10/13/16 20:05 10/22/16 21:09 DC 10/21/16 20:05 Lactated Ringer's 1,000 ml @ 125 mls/hr Q8H IV 10/22/16 12:59 10/22/16 21:09 DC Oxytocin/Lactated Ringer's 500 ml @ 125 mls/hr ONCE IV 10/22/16 13:00 10/22/16 21:10 DC 10/22/16 17:57 Oxytocin/Lactated Ringer's 500 ml @ 0 mls/hr ONCE PRN IV For Hemorrhage Management 10/22/16 13:00 10/22/16 21:10 DC Methylergonovine Maleate (Methergine) 0.2 mg ONCE PRN IM VAGINAL BLEEDING 10/22/16 13:00 10/22/16 21:10 DC Carboprost Tromethamine (Hemabate) 250 mcg ONCE PRN IM VAGINAL BLEEDING 10/22/16 13:00 10/22/16 21:10 DC Misoprostol 1000 mcg 1,000 mcg ONCE PRN SC VAGINAL BLEEDING 10/22/16 13:00 10/22/16 21:10 DC Clindamycin HCl/ Dextrose 50 ml @ 50 mls/hr ONCE IV 10/22/16 13:30 10/22/16 21:09 DC Dextrose/Lactated Ringer's (D5-Lr) 1,000 ml @ 125 mls/hr Q8H IV 10/22/16 13:30 10/22/16 21:09 DC Ephedrine Sulfate 50 mg 50 mg STK-MED ONCE .ROUTE 10/22/16 16:19 10/22/16 16:20 DC Oxytocin/Lactated Ringer's 500 ml @ ud STK-MED ONCE IV 10/22/16 16:19 10/22/16 16:20 DC Morphine Sulfate (Duramorph) 10 mg STK-MED ONCE .ROUTE 10/22/16 16:19 10/22/16 16:20 DC Ondansetron HCl (Zofran Inj) 4 mg STK-MED ONCE .ROUTE 10/22/16 16:19 10/22/16 16:20 DC Metoclopramide HCl (Reglan) 10 mg STK-MED ONCE .ROUTE 10/22/16 16:19 10/22/16 16:20 DC Oxytocin (Oxytocin) 10 units STK-MED ONCE .ROUTE 10/22/16 16:19 10/22/16 16:20 DC Midazolam HCl (Versed) 2 mg STK-MED ONCE .ROUTE 10/22/16 16:51 10/22/16 16:52 DC Midazolam HCl (Versed) 2 mg STK-MED ONCE .ROUTE 10/22/16 16:58 10/22/16 16:59 DC Naloxone HCl (Narcan) 0.1 mg Q2M PRN IV FOR RESP RATE 8 OR LESS 10/22/16 17:30 10/23/16 17:29 DC Ketorolac Tromethamine (Toradol) 30 mg Q6H PRN IV PAIN 10/22/16 17:30 10/23/16 17:29 DC 10/23/16 16:00 Morphine Sulfate (morphine) 2 mg Q3H PRN IV PAIN LEVEL 1-5 10/22/16 17:30 10/23/16 17:29 DC Morphine Sulfate (morphine) 4 mg Q3H PRN IV PAIN LEVEL 6-10 10/22/16 17:30 10/23/16 17:29 DC Hydromorphone HCl (Dilaudid) 0.2 mg Q3H PRN IV PAIN LEVEL 1-5 10/22/16 17:30 10/23/16 17:29 DC Hydromorphone HCl (Dilaudid) 0.4 mg Q3H PRN IV PAIN LEVEL 6-10 10/22/16 17:30 10/23/16 17:29 DC Diphenhydramine HCl (Benadryl) 25 mg Q6H PRN IV ITCHING 10/22/16 17:30 10/23/16 17:29 DC Ondansetron HCl (Zofran Inj) 4 mg Q6H PRN IV NAUSEA AND/OR VOMITING 10/22/16 17:30 10/23/16 17:29 DC Morphine Sulfate (Duramorph) 0.3 mg GIVEN ANESTH ONCE SPINAL 10/22/16 17:30 10/22/16 17:31 DC Ephedrine Sulfate 5 mg 5 mg [id number] PRN IV BLOOD PRESSURE SUPPORT 10/22/16 17:30 10/22/16 21:09 DC Magnesium Sulfate 100 ml @ 200 mls/hr ONCE ONCE IV 10/22/16 18:30 10/22/16 18:59 DC 10/22/16 18:54 Magnesium Sulfate 500 ml @ 50 mls/hr Q10H IV 10/22/16 18:24 10/23/16 13:28 DC 10/23/16 05:59 Lactated Ringer's (Lr) 1,000 ml @ 125 mls/hr Q8H IV 10/22/16 21:02 10/24/16 00:30 DC 10/23/16 12:14 IV Flush 3 ml 3 ml PER PROTOCOL IV 10/22/16 21:30 Oxytocin/Lactated Ringer's 500 ml @ 125 mls/hr Q4H IV 10/22/16 21:02 10/23/16 08:00 DC 10/23/16 06:09 Acetaminophen/ Codeine Phosphate (Tylenol No.3) 2 tab Q4H PRN PO PAIN LEVEL 7-10 10/22/16 21:30 Oxycodone/ Acetaminophen (Percocet (5/ 325)) 2 tab Q4H PRN PO PAIN LEVEL 7-10 10/22/16 21:30 10/24/16 11:31 Ibuprofen (Motrin) 800 mg Q8 PO 10/23/16 22:00 10/24/16 05:23 Simethicone (Mylicon) 160 mg Q8H PRN PO DISTENSION/GAS/BLOATING 10/22/16 21:30 Sodium Biphosphate/ Sodium Phosphate (Fleet Enema) 133 ml DAILY PRN SC CONSTIPATION 10/22/16 21:30 Lanolin (Suy-P-Eaavvg) 1 applic BEDSIDE MEDICATION PRN TOP BEDSIDE FOR BRENNEN TO NIPPLES 10/22/16 21:30 10/24/16 11:30 Diphtheria/ Tetanus/Acell Pertussis (Adacel) 0.5 ml ONCE ONCE IM* 10/25/16 09:00 10/25/16 09:01 Measles/Mumps/ Rubella Vaccine Live 0.5 ml 0.5 ml ONCE ONCE SC* 10/25/16 09:00 10/25/16 09:01 Oxytocin/Lactated Ringer's 500 ml @ 0 mls/hr ONCE PRN IV For Hemorrhage Management 10/22/16 21:30 Methylergonovine Maleate (Methergine) 0.2 mg ONCE PRN IM VAGINAL BLEEDING 10/22/16 21:30 Carboprost Tromethamine (Hemabate) 250 mcg ONCE PRN IM VAGINAL BLEEDING 10/22/16 21:30 Misoprostol (Cytotec) 1,000 mcg ONCE PRN SC VAGINAL BLEEDING 10/22/16 21:30 Influenza Virus Vaccine (Fluzone) 0.5 ml ONCE ONCE IM* 10/23/16 09:00 10/23/16 09:01 DC 10/24/16 09:22 is healing well. Breast feeding the new born. DELMIS BALTAZAR MD Oct 24, 2016 13:13
[2016-10-25 04:00] VITALS: BP 100/62; RESP 19
[2016-10-25] MEDS: IBUPROFEN 800 MG TAB PO SCH ×3 (05:55→21:44)
[2016-10-25 08:00] VITALS: BP 109/68; PULSE 80; RESP 18
[2016-10-25] MEDS: ACCUCHECK XX SCH ×4 (08:00→20:05)
[2016-10-25] MEDS ORDERED: MEASLES,MUMPS,RUBELLA VACCINE INJ SC* ONE (09:00)
[2016-10-25] MEDS ORDERED: DIPHTH/TET/ACEL PERTUSS (ADULT) 0.5 ML VIAL IM* ONE (09:00)
[2016-10-25] MEDS: OXYCODONE/ACETAMINOPHEN (5/325) TAB PO PRN (09:15)
--- NOTE | 2016-10-25 09:37 | PN ---
Date/Time of Note Date/Time of Note DATE: 10/25/16 TIME: 09:37 DASH GOODMAN MD Oct 25, 2016 09:37
--- NOTE | 2016-10-25 10:35 | PN ---
Date/Time of Note Date/Time of Note DATE: 10/25/16 TIME: 10:29 OB Subjective Subjective Subjective Patient reports feeling pressure in the frontal area and feeling warm when she bend her head. resolves when she straightens her head. Tolerated regular. diet. passe flatus. Pumping her breast. Baby is in NICU due to prematuring. Denies any blurred vision or epigastric pain.Urinated. OB Objective Objective Objective GA: A&O, NAD Abdomen: soft, appropriate tenderness over the section incision. incision: Clean, dry and intact Extremities: no calf tenderness, no click, no edema Lungs: CTA bilateally CV: RRR Hematology - 72 Hrs Test 10/23/16 06:13 Basophils # 0.110^3/ul (0.0-0.1) Basophils % 0.5% (0.0-2.0) Blood Morphology Comment Eosinophils # 0.110^3/ul (0.0-0.5) Eosinophils % 0.4% (0.0-7.0) Hematocrit 38.3% (37.0-47.0) Hemoglobin 13.4g/dl (12.0-16.0) Lymphocytes # 3.910^3/ul (0.8-2.9) H Lymphocytes % 22.0% (15.0-51.0) Mean Corpuscular Hemoglobin 32.4pg (29.0-33.0) Mean Corpuscular Hemoglobin Concent 35.1g/dl (32.0-37.0) Mean Corpuscular Volume 92.4fl (82.0-101.0) Mean Platelet Volume 8.4fl (7.4-10.4) Monocytes # 1.010^3/ul (0.3-0.9) H Monocytes % 5.9% (0.0-11.0) Neutrophils # 12.710^3/ul (1.6-7.5) H Neutrophils % 71.2% (39.0-77.0) Nucleated Red Blood Cells # 0.010^3/ul (0.0-0.0) Nucleated Red Blood Cells % 0.0/100WBC (0.0-0.0) Platelet Count 42219^3/UL (140-440) Red Blood Count 4.1410^6/ul (4.20-5.40) L Red Cell Distribution Width 14.9% (11.5-14.5) H White Blood Count 17.810^3/ul (4.8-10.8) #H Chemistry Test 10/22/16 11:04 10/22/16 13:08 10/22/16 18:33 10/23/16 00:20 Bedside Glucose 106mg/dL (70-220) 78mg/dL (70-220) 94mg/dL (70-220) Magnesium Level 5.6mg/dl (1.7-2.5) *H Test 10/23/16 06:13 10/23/16 07:56 10/23/16 10:31 10/23/16 12:30 Magnesium Level 6.0mg/dl (1.7-2.5) *H 6.5mg/dl (1.7-2.5) *H Bedside Glucose 85mg/dL (70-220) 103mg/dL (70-220) Test 10/23/16 16:08 10/23/16 21:35 10/24/16 07:51 10/24/16 11:19 Bedside Glucose 138mg/dL (70-220) 138mg/dL (70-220) 94mg/dL (70-220) 120mg/dL (70-220) Test 10/24/16 15:18 10/24/16 20:32 10/25/16 08:01 Bedside Glucose 115mg/dL (70-220) 90mg/dL (70-220) 86mg/dL (70-220) OB Assessment/Plan Other Assessment: Post op day #3 S/p repeat section for low SALIMA and deceleration PIH ,s/p steriods and magnesium GDM: diet controlled. doing well Blood pressures well controlled discomfort in head when bend her head? likely due to regional anesthesia. Adequate hydration discussed, if symptoms continues, requests anesthesia evaluation. Leukocytosis. Likely reactive post surgery. no clear evidence of infection. Repeat CBC am Anticipate DC home tomorrow DASH GOODMAN MD Oct 25, 2016 10:35
[2016-10-25 16:00] VITALS: BP 121/72; PULSE 68; RESP 18
[2016-10-25 19:45] VITALS: BP 137/86; PULSE 86; RESP 18
[2016-10-26] MEDS: OXYCODONE/ACETAMINOPHEN (5/325) TAB PO PRN ×2 (01:16→08:57)
[2016-10-26 04:00] VITALS: BP 137/86; RESP 17
[2016-10-26] MEDS: IBUPROFEN 800 MG TAB PO SCH ×2 (05:45→13:47)
[2016-10-26] MEDS: ACCUCHECK XX SCH ×3 (07:30→15:24)
[2016-10-26 08:00] VITALS: BP 122/75; PULSE 84; RESP 18
[2016-10-26 08:43] LABS: BASOPHILS % 0.4 % (0.0-2.0); EOSINOPHILS # 0.3 10^3/ul (0.0-0.5); EOSINOPHILS % 2.1 % (0.0-7.0); HEMATOCRIT 32.2 % (37.0-47.0); LYMPHOCYTES # 4.5 10^3/ul (0.8-2.9); LYMPHOCYTES % 32.8 % (15.0-51.0); MEAN CORPUSCULAR HGB CONC 34.3 g/dl (32.0-37.0); MEAN CORPUSCULAR VOLUME 93.4 fl (82.0-101.0); MEAN PLATELET VOLUME 8.1 fl (7.4-10.4); MONOCYTE # 0.8 10^3/ul (0.3-0.9); NEUTROPHIL # 8.1 10^3/ul (1.6-7.5); NEUTROPHILS % 58.7 % (39.0-77.0); PLATELET COUNT 243 10^3/UL (140-440); RED BLOOD COUNT 3.44 10^6/ul (4.20-5.40); RED CELL DISTRIBUTION WIDTH 15.3 % (11.5-14.5); UNCORRECTED WBC 13.8 10^3/ul (4.8-10.8); WHITE BLOOD COUNT 13.8 10^3/ul (4.8-10.8)
[2016-10-26 08:44] LABS: CONDITION 1; LH ANALYZER COMMENTS 1
--- NOTE | 2016-10-26 10:28 | DS ---
Date/Time of Note Date/Time of Note DATE: 10/26/16 TIME: 10:26 Discharge Summary Admission/Discharge Info Admit Date/Time Sep 20, 2016 at 01:52 Discharge Date/Time Final Diagnosis 33 weeks with a c/s for breech, and oligo Hospital Course PTL, DM, PIH. post operative period was unremarkable Home Meds Reported Medications Labetalol Hcl* (Labetalol Hcl*) 100 Mg Tablet, 100 MG PO BID, TAB 10/13/16 [Prenatals] No Conflict Check 11/11/10 Pending Labs Laboratory Tests Test 10/25/16 12:30 10/25/16 17:34 10/25/16 20:25 10/26/16 02:45 Bedside Glucose 128mg/dL (70-220) 85mg/dL (70-220) 97mg/dL (70-220) Basophils # 0.010^3/ul (0.0-0.1) Basophils % 0.4% (0.0-2.0) Blood Morphology Comment Eosinophils # 0.310^3/ul (0.0-0.5) Eosinophils % 2.1% (0.0-7.0) Hematocrit 32.2% (37.0-47.0) Hemoglobin 11.0g/dl (12.0-16.0) Lymphocytes # 4.510^3/ul (0.8-2.9) Lymphocytes % 32.8% (15.0-51.0) Mean Corpuscular Hemoglobin 32.0pg (29.0-33.0) Mean Corpuscular Hemoglobin Concent 34.3g/dl (32.0-37.0) Mean Corpuscular Volume 93.4fl (82.0-101.0) Mean Platelet Volume 8.1fl (7.4-10.4) Monocytes # 0.810^3/ul (0.3-0.9) Monocytes % 6.0% (0.0-11.0) Neutrophils # 8.110^3/ul (1.6-7.5) Neutrophils % 58.7% (39.0-77.0) Nucleated Red Blood Cells # 0.010^3/ul (0.0-0.0) Nucleated Red Blood Cells % 0.0/100WBC (0.0-0.0) Platelet Count 89259^3/UL (140-440) Red Blood Count 3.4410^6/ul (4.20-5.40) Red Cell Distribution Width 15.3% (11.5-14.5) White Blood Count 13.810^3/ul (4.8-10.8) Test 10/26/16 08:00 Bedside Glucose 77mg/dL (70-220) OPAL SAUCEDA MD Oct 26, 2016 10:28
[2016-10-26 12:45] VITALS: BP 120/68; PULSE 73; RESP 18
[2016-10-26 16:00] VITALS: BP 120/68; PULSE 71; RESP 18
== END 2016-10-26 19:55 | disposition home or self-care (01) | DRG 765 ==
LOC: OBT 23:45 → L-D 23:46 → OBT 09-20 01:52 → OBG 09-20 15:48 → L-D 10-22 13:20 → PP1 10-22 20:30
PROVIDERS: ADMIT Obstetrics & Gynecology; ATTEND Obstetrics & Gynecology
PROC: 10D00Z1 Extraction of Products of Conception, Low, Open Approach (ICD-10-PCS; principal; 2016-09-20)
DX: O14.13 Severe pre-eclampsia, third trimester (principal); Z68.43 Body mass index [BMI] 50.0-59.9, adult; O36.5930 Maternal care for other known or suspected poor fetal growth, third trimester, not applicable or unspecified; O41.03X0 Oligohydramnios, third trimester, not applicable or unspecified; O32.1XX0 Maternal care for breech presentation, not applicable or unspecified; O99.214 Obesity complicating childbirth; E66.01 Morbid (severe) obesity due to excess calories; O99.62 Diseases of the digestive system complicating childbirth; K80.20 Calculus of gallbladder without cholecystitis without obstruction; O24.420 Gestational diabetes mellitus in childbirth, diet controlled; O34.219 Maternal care for unspecified type scar from previous cesarean delivery; Z37.0 Single live birth; Z3A.29 29 weeks gestation of pregnancy
CPT/HCPCS: 76705; 76815; 76816; 76817; 76818; 76820; 80053; 80069; 80076; 81001; 81003; 82150; 82575; 82731; 82947; 82951; 82962; 83615; 83690; 83735; 84112; 84156; 84560; 85025; 85384; 85610; 85730; 86592; 86850; 86900; 86901; 87086; 87340; 88304; 88307; 90686; 90715; 94760; 99464; G0463; J0702; J1815; J1885; J2250; J2274; J2405; J2590; J2765; J3475; J7120; J7121

== ENCOUNTER 2018-12-14 06:02 | Observation (INO) | payer MEDICAID, OTHER ==
[2018-12-13 10:37] VITALS: Ht 134.6 cm; Wt 95.4 kg
[2018-12-14] VITALS (30 sets, daily range): BP systolic 107–133; BP diastolic 62–84; PULSE 77–96; RESP 18–32
[~2018-12-14] VITALS: Ht 134.6 cm; Wt 95.4 kg
[~2018-12-14 06:02] MED LIST changes: -NITR-58; +VANCOMYCIN 1 GM 250 ML IVPB SCH
[2018-12-14] MEDS ORDERED: SUCCINYLCHOLINE CHLORIDE 100 MG/5 ML SYG IV ONE ×2 (07:00)
[2018-12-14] MEDS: SOD CHLORIDE 0.9% 1,000 ML IV SCH ×2 (07:13→15:16)
--- NOTE | 2018-12-14 07:23 | PREAC ---
Date/Time of Note Date/Time of Note DATE: 12/14/18 TIME: 07:21 Anesthesia Eval and Record Evaluation Time Pre-Procedure Interview DATE: 12/14/18 TIME: 07:21 Age 37 Sex female NPO: 8 hrs Preoperative diagnosis gallstones Planned procedure Lap Brianda Past Medical History Past Medical History: Includes GI: Morbid obesity Surgery & Anesthesia Issues No known issue Meds Anticoagulation: No Beta Sherman within 24 hr: No Reason Beta Sherman not given: Pt. not on B-Sherman Reported Medications [Prenatals] No Conflict Check 11/11/10 Current Medications Vancomycin HCl 250 ml @ 125 mls/hr PREOP IVPB Last administered on 12/14/18at 07:13; Admin Dose 125 MLS/HR; Start 12/14/18 at 06:00; Stop 12/14/18 at 17:00 Sodium Chloride 1,000 ml @ 75 mls/hr [id number] IV Last administered on 12/14/18at 07:13; Admin Dose 75 MLS/HR; Start 12/14/18 at 06:00; Stop 12/14/18 at 17:00 Meds reviewed: Yes Allergies Coded Allergies: Penicillins (Verified Allergy, Mild, rash, 12/14/18) Allergies Reviewed: Yes Labs/Studies Labs Reviewed: Reviewed by anesthesiologist test: Negative Pre-procedure Exam Airway: Adequate mouth opening, Adequate thyromental dist Mallampati: Mallampati II Teeth: Normal Lung: Normal Heart: Normal ASA Physical Status ASA physical status: 3 Emergency: None Planned Anesthetic General/MAC: ETT Nerve block: TAP (bilateral) Pre-operative Attestations Prior to commencing anesthesia and surgery, the patient was re-evaluated, there was verification of: *The patient's identity *The results of appropriate recent lab work and preoperative vital signs *The above evaluation not changing prior to induction *Anesthetic plan, risk benefits, alternative and complications discussed with patient/family; questions answered; patient/family understands, accepts and w ishes to proceed. LISSET SCRUGGS Dec 14, 2018 07:23
[2018-12-14] MEDS ORDERED: DIPHENHYDRAMINE 50 MG INJ IV PRN (07:30)
[2018-12-14] MEDS ORDERED: MEPERIDINE 25 MG INJ IV PRN (07:30)
[2018-12-14] MEDS ORDERED: FENTAnyl 50 MCG/ML VIAL IV PRN ×3 (07:30)
[2018-12-14] MEDS ORDERED: METOCLOPRAMIDE 10 MG INJ IV PRN (07:30)
[2018-12-14] MEDS ORDERED: HYDROmorphONE 1 MG/5 ML IV SYRINGE IV PRN ×3 (07:30)
[2018-12-14] MEDS ORDERED: ONDANSETRON 4 MG INJ IV PRN (07:30)
[2018-12-14] MEDS ORDERED: ALBUTEROL 0.083% (NEB) 2.5 MG/3 ML AMP HHN PRN (07:30)
[2018-12-14] MEDS ORDERED: FENTAnyl 50 MCG/ML VIAL ONE (07:34)
[2018-12-14] MEDS ORDERED: ROPIVACAINE 0.5 % 30 ML VIAL ONE (07:34)
[2018-12-14] MEDS ORDERED: metroNIDAZOLE 500 MG/NS (PMX) 100 ML IVPB ONE (09:46)
[2018-12-14] MEDS ORDERED: PROPOFOL 20 ML ONE (09:50)
[2018-12-14] MEDS ORDERED: ROCURONIUM 50 MG INJ ONE (09:50)
[2018-12-14] MEDS ORDERED: LIDOCAINE 100 MG SYRINGE ONE (09:50)
[2018-12-14] MEDS ORDERED: SUGAMMADEX SODIUM 200 MG/2 ML VIAL IV ONE (09:50)
[2018-12-14] MEDS: LACTATED RINGER'S 1,000 ML IV SCH ×2 (11:40→21:40)
[2018-12-14] MEDS ORDERED: IBUPROFEN 600 MG TAB PO PRN (12:00)
--- NOTE | 2018-12-14 12:09 | OPR ---
Date/Time of Note Date/Time of Note DATE: 12/14/18 TIME: 12:04 Operative Report Procedure Date: Dec 14, 2018 Preoperative Diagnosis chronic cholecystitis Postoperative Diagnosis acute on chronic cholecystitis; hydrops of gallbladder; morbid obesity Operation/Procedure Performed laparoscopic cholecystectomy Surgeon Juan Diego Fletcher MD [facility] History Department Chair none Anesthesia Type: general Estimated Blood Loss: 10 - 50 ml's Transfusion none Specimen gallbladder Grafts/Implants none Complications none Pt Condition Post Procedure: stable Disposition: PACU Indications Patient is morbidly obese and presented with RUQ pain following meals. She underwent imaging that showed a large stone at the neck of the gallbladder and will require cholecystectomy for symptomatic relief. Procedure Description Patient was laid supine on the operating room table. Time out conducted, Venodyne boots placed. The abdomen was prepped and draped in sterile condition; preop abx were confirmed. A 5mm incision was made at the mid clavicular line at the subcostal region and Veress needle inserted until three clicks were heard. The abdomen was insufflated to 15 mmH and then the Optiview trocar was used to enter the abdomen. The area of entry was examined and confirmed to have no injury. A 5 mm port was then placed in the periumbilical space under visualization and a second retraction port was placed at the lateral RLQ. The camera was then inserted into the umbilical port and a 12 mm incision was made at the subxiphoid region where a 12 mm port was placed. There was an umbilical hernia and this was left untouched and both the hernia and its content were avoided during the surgery. The gallbladder was distended with large stones at its neck. A cyst aspiration needle was used to aspirate its content which was noted to be consistent with hydrops. The gallbladder was grasped superiorly and laterally from the RLQ port and the fundus was grasped with the other 5 mm port while the dissection was carried out using the subxiphoid port. The omental adhesions from the gallbladder were bluntly dissected and the cystic artery and cystic duct were skeletonized creating the critical view of safety showing the cystic plate through the triangle of Calot with only two structures entering the gallbladder from lateral and medial views. The cystic duct was clipped twice proximally and once distally and it was transected. The same was done to the cystic artery. The gallbladder was then cauterized off the liver bed, placed into an Endocatch, bag and retrieved. The clips were reinspected and confirmed to be in place and the gallbladder fossa confirmed to be hemostatic. The Endo- Close device was then used to close the 12 mm port site. The remaining ports were removed under visualization and the pneumoperitoneum evacuated. The skin incisions were closed with 4-0 buried Monocryl interrupted sutures. All instrument and needle counts were correct at the end of the procedure x 2. JUAN DIEGO FLETCHER Dec 14, 2018 12:09
--- NOTE | 2018-12-14 12:42 | PAC ---
Date/Time of Note Date/Time of Note DATE: 12/14/18 TIME: 12:42 Post-Anesthesia Notes Post-Anesthesia Note Last documented vital signs Vital Signs Date Temp Pulse Resp B/P (MAP) Pulse Ox O2 O2 Flow FiO2 Time Delivery Rate 12/14/18 98.0 11:31 12/14/18 77 18 107/68 97 Room Air 07:20 (81) Activity: WNL Respiratory function: WNL Cardiovascular function: WNL Mental status: Baseline Pain reasonably controlled: Yes Hydration appropriate: Yes Nausea/Vomiting absent: Yes LISSET SCRUGGS Dec 14, 2018 12:42
[2018-12-14] MEDS: HYDROCODONE/APAP (5/325) TAB PO PRN (14:20)
[2018-12-15] VITALS (7 sets, daily range): BP systolic 112–122; BP diastolic 63–75; PULSE 79–95; RESP 19–20
[2018-12-15] MEDS: HYDROCODONE/APAP (5/325) TAB PO PRN (03:32)
[2018-12-15] MEDS ORDERED: ENOXAPARIN 40 MG/0.4 ML SYG SC SCH (07:00)
[2018-12-15] MEDS: LACTATED RINGER'S 1,000 ML IV SCH (08:48)
== END 2018-12-15 12:15 | disposition home or self-care (01) ==
LOC: SDS 06:02 → REC 12:04 → 6WM 13:50
PROVIDERS: ADMIT Surgery Surgical Critical Care; ATTEND Surgery Surgical Critical Care
DX: K80.10 Calculus of gallbladder with chronic cholecystitis without obstruction (principal); E66.01 Morbid (severe) obesity due to excess calories; Z68.43 Body mass index [BMI] 50.0-59.9, adult
CPT/HCPCS: 47562; 80053; 85025; 88304; J1170; J1200; J1650; J2001; J2795; J3010; J3370; J7120; Z7500; Z7512; Z7610; 99217; G0378